=== PATIENT | male | born 1975 | race Two or more races ===

== ENCOUNTER 2023-02-18 12:30 | Outpatient (OUT) | payer OTHER, SELFPAY ==
[2023-02-18 12:59] LABS: Bilirubin Urine NEGATIVE (NEGATIVE); Blood Urine NEGATIVE (NEGATIVE); Clarity Urine CLEAR (CLEAR); Color Urine LT. YELLOW (YELLOW); Glucose Urine UA NEGATIVE (NEGATIVE); Ketones Urine NEGATIVE (NEGATIVE); Leukocyte Esterase Urine NEGATIVE (NEGATIVE); Nitrite Urine NEGATIVE (NEGATIVE); Protein Urine NEGATIVE (NEG/TRACE); Urobilinogen Urine 0.2 EU/dL (0.2-1.0); pH Urine 6.5 (5.0-9.0)
[2023-02-18 13:02] LABS: Basophils Percent Auto 0.4 % (0.2-2.0); Eosinophils Absolute Auto 0.3 10^3/uL (0.0-0.7); Eosinophils Percent Auto 2.3 % (0.9-7.0); Hematocrit 45.7 % (42.0-54.0); Hemoglobin 15.2 g/dL (14.0-18.0); Immature Granulocytes Abs Auto 0.09 10^3/uL (0.00-0.03); Immature Granulocytes Pct Auto 0.8 % (0.0-0.5); Lymphocytes Absolute Auto 2.5 10^3/uL (1.2-3.8); Lymphocytes Percent Auto 22.6 % (20.5-60.0); Mean Corpuscular HGB Conc 33.3 g/dL (29.9-35.2); Mean Corpuscular Hemoglobin 29.2 pg (25.9-34.0); Mean Corpuscular Volume 87.7 fL (80.0-94.0); Mean Platelet Volume 10.9 fL (9.5-13.5); Monocytes Percent Auto 8.6 % (1.7-12.0); Neutrophils Absolute Auto 7.3 10^3/uL (1.4-6.5); Neutrophils Percent Auto 65.3 % (43.0-75.0); Platelet Count 198 10^3/uL (150-450); Red Blood Count 5.21 10^6/uL (4.70-6.10); Red Cell Distribution Width 13.7 % (11.0-15.0); White Blood Count 11.1 10^3/uL (4.0-11.0)
[2023-02-18 13:07] LABS: Estimated Average Glucose 146 mg/dL; Glycohemoglobin A1C 6.7 % (4.5-6.2)
[2023-02-18 14:37] LABS: Alanine Aminotransferase 89 U/L (16-63); Albumin Globulin Ratio 0.7; Albumin Level 3.6 g/dL (3.4-5.0); Alkaline Phosphatase 118 U/L (46-116); Anion Gap 11.3; Aspartate Amino Transferase 52 U/L (15-37); BUN Creatinine Ratio 11.1; Bilirubin Total 0.8 mg/dL (0.2-1.0); Calcium 8.8 mg/dL (8.5-10.1); Carbon Dioxide 28.5 mmol/L (21.0-32.0); Chloride 98 mmol/L (98-107); Chol HDL Ratio 3.8; Cholesterol 146 mg/dL (<=200); Estimated GFR (African America >60 (>=60); Estimated GFR (Non-African Ame >60 (>=60); Globulin 5.4 g/dL; Glucose 105 mg/dL (74-106); HDL Cholesterol 38 mg/dL (40-60); Potassium 3.8 mmol/L (3.5-5.1); Sodium 134 mmol/L (136-145); Triglycerides 90 mg/dL (<=150)
== END 2023-02-18 12:31 ==
LOC: LAB 12:34
PROVIDERS: PCP Family Medicine; Visit Provider Family Medicine
DX: Z00.00 Encounter for general adult medical examination without abnormal findings (principal); R35.0 Frequency of micturition
CPT/HCPCS: 36415; 80053; 80061; 81003; 83036; 85025

== ENCOUNTER 2023-06-21 08:49 | Outpatient (OUT) | payer OTHER, SELFPAY ==
--- NOTE | 2023-06-21 | CT_ITS ---
[address] [address] Patient Name: PEDRO ROMERO MRN: [id number] date: 1975 Sex: M Assigned Patient Location: CT Current Patient Location: CT Accession/Order Number: [id number] Exam Date: 06/21/2023 08:55 Report Date: 06/21/2023 16:53 At the request of: MILKA LEE Procedure: CT abdomen wo/w con CT abdomen wo/w con, 06/21/2023 8:55 AM EDT INDICATION: Hematuria COMPARISON: There is no appropriate prior study for comparison. TECHNIQUE: Axial images of the abdomen were obtained after the administration of IV contrast. Multiplanar reformatted images were generated and reviewed as needed. Dose reduction techniques were achieved by using automated exposure control and/or adjustment of mA and/or kV according to patient size and/or use of iterative reconstruction technique. FINDINGS: Lungs: Minimal dependent atelectasis is noted. No pleural effusion is noted. Liver and gallbladder: The liver is unremarkable. No enlargement of intra or extrahepatic biliary ducts. Possible sludge within the gallbladder with no pericholecystic fluid or wall thickening. Genitourinary system: No hydronephrosis. No nephrolithiasis. No abnormality of the urinary bladder is noted. No suspicious renal lesion is noted. The ureters are opacified except in the proximal left ureter likely due to peristalsis. Other solid abdominal organs: adrenal glands, pancreas, and spleen are unremarkable. Aorta: The infrarenal abdominal aorta is nonaneurysmal. Free fluid: There is no free fluid in the abdomen pelvis. Lymph node: A gastrohepatic/peripancreatic lymphadenopathy is noted measuring 1.9 cm in short axis. Otherwise, no lymph node enlargement by size criteria is noted. Stomach and Bowel: No abnormality of the stomach is noted. No abnormality of small or large bowel is noted. Appendix is normal. There is an umbilical hernia containing fat and a tiny calcification. Bone: There is no suspicious osteolytic or osteoblastic lesion. Mild lower lumbar spine degenerative changes are noted. CT/CT abdomen wo/w con IMPRESSION: No definite radiological finding to explain patient's hematuria. Gastrohepatic/peripancreatic lymphadenopathy. Consider gastritis, duodenitis or hepatitis. Possible sludge within the gallbladder. No pericholecystic fluid or wall thickening is noted. Electronically authenticated by: JOSHUA ANDERSON Date: 06/21/2023 16:53
== END 2023-06-21 08:50 | disposition home or self-care (01) ==
PROVIDERS: PCP Family Medicine; Visit Provider Urology
DX: R31.29 Other microscopic hematuria (principal)
CPT/HCPCS: 74170; Q9967

== ENCOUNTER 2023-07-08 15:56 | Outpatient (OUT) | payer OTHER, SELFPAY ==
[2023-07-08 17:16] LABS: Prostate Specific Antigen Dx 0.77 ng/mL (<=4.00)
== END 2023-07-08 15:57 | disposition home or self-care (01) ==
LOC: LAB 15:58
PROVIDERS: PCP Family Medicine; Visit Provider Urology
DX: N40.1 Benign prostatic hyperplasia with lower urinary tract symptoms (principal)
CPT/HCPCS: 36415; 84153

== ENCOUNTER 2024-08-30 10:22 | Outpatient (OUT) | payer OTHER, SELFPAY ==
[2024-08-30 10:41] LABS: Basophils Percent Auto 0.5 % (0.2-2.0); Eosinophils Absolute Auto 0.2 10^3/uL (0.0-0.7); Eosinophils Percent Auto 1.9 % (0.9-7.0); Hematocrit 42.9 % (42.0-54.0); Hemoglobin 14.7 g/dL (14.0-18.0); Immature Granulocytes Abs Auto 0.09 10^3/uL (0.00-0.03); Immature Granulocytes Pct Auto 1.1 % (0.0-0.5); Lymphocytes Absolute Auto 1.7 10^3/uL (1.2-3.8); Lymphocytes Percent Auto 20.4 % (20.5-60.0); Mean Corpuscular HGB Conc 34.3 g/dL (29.9-35.2); Mean Corpuscular Hemoglobin 29.9 pg (25.9-34.0); Mean Corpuscular Volume 87.4 fL (80.0-94.0); Mean Platelet Volume 11.9 fL (9.5-13.5); Monocytes Absolute Auto 0.7 10^3/uL (0.3-0.8); Monocytes Percent Auto 8.4 % (1.7-12.0); Neutrophils Absolute Auto 5.7 10^3/uL (1.4-6.5); Neutrophils Percent Auto 67.7 % (43.0-75.0); Platelet Count 126 10^3/uL (150-450); Red Blood Count 4.91 10^6/uL (4.70-6.10); Red Cell Distribution Width 13.3 % (11.0-15.0); White Blood Count 8.5 10^3/uL (4.0-11.0)
--- OUTSIDE RECORDS SUMMARY | 2024-08-30 10:45 | XMS_ITS | CCD ---
Author Organization [facility] Care Team Providers Care Wire Setter Name Role Phone BENITA COLE Consulting Unavailable BENITA COLE Attending Unavailable BENITA COLE Admitting Unavailable BENITA COLE Primary Care Unavailable MISC, DOCTOR Consulting Unavailable MISC, DOCTOR Attending Unavailable MISC, DOCTOR Admitting Unavailable PATY DEL REAL Consulting Unavailable JEWELL CABALLERO Consulting Unavailable [facility] Consulting Unavailable Benita Cole Unavailable BENITA COLE Primary Care Physician Leo FRAZIER Attending Unavailable BENITA COLE Referring Unavailable Leo FRAZIER Admitting Unavailable Leo FRAZIER Attending Unavailable Leo FRAZIER Attending Unavailable Nisa Santillan Unavailable Allergies Allergy Classification Reported Allergen(s) Allergy Type Date of Onset Reaction(s) Facility (1 source) No Known Medication Allergies; Translations: [No Known Medication Allergies] Propensity to adverse reactions (disorder) [facility] [place] [facility] Repository (1 source) patient allergy list reviewed by nurse or physicia Propensity to adverse reactions Comment:Done [facility] Other (1 source) Allergies Reconciled Propensity to adverse reactions Unknown [facility] Other Medications Current Medications Medication Drug Class(es) Dates Sig (Normalized) Sig (Original) 24 hr alfuzosin hydrochloride 10 mg extended release oral tablet (1 source) alpha-Adrenergic Pawel Start: 05-26-2023 End: 05-20-2024 take 1 tablet by mouth once daily alfuzosin 10 mg ER Tab 10 mg = 1 tab(s), Oral, Daily, X 30 day(s), # 30 tab(s), Refills(s) 11, Pharmacy: [facility], 169, cm, 05/26/23 13:52:00 EDT, Height/Length Dosing, 131, kg, 05/26/23 13:52:00 EDT, Weight Dosing Start Date: 05/26/23 Stop Date: 05/20/24 Status: Ordered amoxicillin 875 mg / clavulanate 125 mg oral tablet (1 source) Penicillin-class Antibacterial Start: 09-20-2023 take 1 tablet by mouth every twelve hours Amoxicillin-Pot Clavulanate 875-125 MG 1 tablet Orally every 12 hrs for 10 day(s) Sep, Active metFORMIN hydrochloride 1000 mg oral tablet (3 sources) Biguanide Start: 03-05-2023 metformin 1000 mg Tab Refills(s) 0 Start Date: 05/26/23 Status: Ordered Naproxen (1 source) Nonsteroidal Anti-inflammatory Drug Start: 05-26-2023 naproxen Oral, Refills(s) 0 Start Date: 05/26/23 Status: Ordered predniSONE 20 mg oral tablet (1 source) Start: 09-20-2023 take 1 tablet by mouth every twelve hours predniSONE 20 MG 1 tablet Orally bid for 5 day(s) Sep, Active Completed/Discontinued Medications Medication Drug Class(es) Dates Sig (Normalized) Sig (Original) ciprofloxacin 500 mg oral tablet (1 source) Quinolone Antimicrobial Start: 05-26-2023 Cipro 500 mg Tab 500 mg = 1 tab(s), Oral, As Directed, Patient to take 1 tab the day before procedure and the 2nd tab the day of procedure once completed, # 2 tab(s), Refills(s) 0, Pharmacy: [facility], 169, cm, 05/26/23 13:52:00 EDT, Height/Length Dos... Start Date: 05/26/23 Status: Ordered fluticasone (1 source) Corticosteroid Start: 06-17-2024 End: 06-17-2024 take 1 spray(s) nasal route once daily Fluticasone Furoate Discontinued 2 SPRAY INTRANASAL Daily 6.6 June 17, 2024 12:00am June 17, 2024 3:33pm into each nostril Problems Active Problems Problem Classification Problem Date Documented Date Episodic/Chronic Diabetes mellitus with complications (3 sources) Type 2 diabetes mellitus well controlled; Translations: [Type 2 diabetes mellitus with hyperglycemia] Chronic Diabetes mellitus without complication (1 source) Type 1 diabetes mellitus 05-19-2023 Chronic Genitourinary symptoms and ill-defined conditions (1 source) Urge incontinence of urine 05-26-2023 Chronic Hyperplasia of prostate (1 source) Benign prostatic hypertrophy with outflow obstruction 05-26-2023 Chronic Inflammation; infection of eye (except that caused by tuberculosis or sexually transmitteddisease) (1 source) Conjunctivitis; Translations: [Unspecified conjunctivitis] Episodic Nonspecific chest pain (1 source) Chest pain; Translations: [Other chest pain] Episodic Other connective tissue disease (1 source) Pain in limb; Translations: [Pain in right thigh] Episodic Other male genital disorders (6 sources) Male erectile dysfunction, unspecified; Translations: [Impotence] Onset: 09-26-2015 Chronic Other nutritional; endocrine; and metabolic disorders (1 source) Obese class II; Translations: [Body mass index (BMI) 38.0-38.9, adult] Chronic Other screening for suspected conditions (not mental disorders or infectious disease) (3 sources) Elevated liver enzymes level; Translations: [Other specified abnormal findings of blood chemistry] Episodic Other upper respiratory disease (3 sources) Allergic rhinitis; Translations: [Allergic rhinitis, unspecified] Chronic Other upper respiratory infections (1 source) Chronic sinusitis; Translations: [Chronic sinusitis, unspecified] Chronic Otitis media and related conditions (1 source) Unspecified nonsuppurative otitis media, left ear Episodic Unclassified (1 source) Asymptomatic microscopic hematuria 05-26-2023 Unclassified (1 source) Patient encounter status 05-26-2023 Past or Other Problems Problem Classification Problem Date Documented Da te Episodic/Chronic Acute bronchitis (1 source) Acute bronchitis; Translations: [Acute bronchitis, unspecified] Onset: 08-24-2015 Episodic Genitourinary symptoms and ill-defined conditions (3 sources) Frequency of micturition; Translations: [Finding of frequency of urination] Onset: 09-26-2015 Episodic Other connective tissue disease (1 source) Pain in left arm; Translations: [PAIN IN LEFT ARM] Onset: 06-24-2020 Episodic Residual codes; unclassified (4 sources) Edema, unspecified; Translations: [EDEMA UNSPECIFIED] Onset: 06-21-2020 Episodic Residual codes; unclassified (1 source) Family history of diabetes mellitus; Translations: [Family history of diabetes mellitus] Onset: 05-24-2014 Episodic Residual codes; unclassified (1 source) Family history of stroke; Translations: [Family history of stroke] Onset: 05-24-2014 Episodic Sprains and strains (1 source) Strain of unspecified muscle, fascia and tendon at shoulder and upper arm level, left arm, initial encounter; Translations: [STRN UNS MSC F TND SHLDR UA LA INIT] Onset: 06-24-2020 Episodic Superficial injury; contusion (1 source) Contusion of lower leg; Translations: [Contusion of right lower leg, initial encounter] Onset: 07-14-2018 Episodic Results Test Name Value Interpretation Reference Range Facility Provider Letteron 07-16-2023 Provider Letter July 16, 2023 AURELIANO ROMERO [address] [place], [place] [address] [address] : 1975 Dear Mr. Romero, We have been trying to reach you with no success. It is important that you return our call regarding your CT and PSA results upon receiving this letter. Also, at the time of your call, please provide us with your current information. Please call our office at [phone] Thank you for your prompt attention to this matter. Sincerely, [facility] [address] [place] [address] Lab Reportson 07-14-2023 Lab Reports [id number]#1 .00[facility]FF [facility] RAD - CT Reporton 06-27-2023 RAD - CT Report [id number]#1 .00[facility]FF [facility] Operative Reporton Operative Report [id number]#1 .00[facility]FF [facility] Pre-Certification Formon Pre-Certification Form [id number] .00[facility]FF [facility] Insurance Correspondenceon 1 Insurance Correspondence [id number]# 1.00TIFF Normal [facility] [place] [facility] Pre-Certification Formon Pre-Certification Form [id number]#1 .00TIFF Normal [facility] [place] [facility] Urine Cytology ([facility])on Urine Cytology Diagnosis Info Invalid Interpretation Code [facility] [place] [facility] Comment on above: Result Comment: A:Ur ine,Urine:Voided Interpretation - MicroScopic Description - Adequacy - Gross Description Site ID:A color Yellow fixative Alcohol Specimen designated Urine received in alcohol preservative and labeled with the patient?s name, consists of 80ml clear yellow fluid. Electronically signed by : on: 06/02/2023 14:58:41 Performed By: #### 1 [id number] ####[facility] [place] [facility] [address] [place] [address] Consent for Procedure/Surger yon 05-27-2023 Consent for Procedure/Surgery [id number]# 1.00CD:127 Normal [facility] [place] [facility] Formson 05-27-2023 Forms [id number]#1. 00CD:127 Normal [facility] [place] [facility] Physician Referralon 023 Physician Referral [id number]. 00CD:127 Normal [facility] [place] [facility] Ambulatory Visit Summaryon 0 05-26-2023 Ambulatory Visit Summary AURELIANO ROMERO :1975 Visit Date:05/26/2023 Ambulatory Visit Instructions Your Diagnosis BPH with obstruction/lower urinary tract symptoms Urge incontinence Asymptomatic microscopic hematuria Screening PSA (prostate specific antigen) Tests Performed Urnls Dip Stick Auto w/o Microscopy POC [address] CT Urogram -- Results Pending -- Please visit your patient portal for your results or contact your primary care physician. Your Care Team Attending Physician - JESUS ZENG, Leo Kelly Primary Care Physician - KELSEY ZENG, BENITA Referring Physician - BENITA COLE MD This Is Your Medications List alfuzosin (alfuzosin 10 mg ER Tab) ciprofloxacin (Cipro 500 mg Tab) Contact prescribing physician if questions or concerns metformin (metformin 1000 mg Tab) naproxen Procedures Performed History of knee surgery. Discharge Vitals Heart Rate (Peripheral) 79 Respiratory Rate 16 Blood Pressure 135/84 Height 169 cm Height 67 in Weight 131 kg Weight 288.2 lb BMI 45.87 What to do next You Need to Schedule the Following Appointments Follow Up with JESUS ZENG, BEATRICE Combs When: Where: [facility] [address], [facility] [place] [address] [phone] Medications What How Much When Instructions New alfuzosin (alfuzosin 10 mg ER Tab) 1 Tablets By Mouth Every day Duration: 30 Days Refills: 11 Pickup at [facility] New ciprofloxacin (Cipro 500 mg Tab) 1 Tablets By Mouth As Directed Patient to take 1 tab the day before procedure and the 2nd tab the day of procedure once completed Pickup at [facility] Unchanged metformin (metformin 1000 mg Tab) Contact prescribing physician if questions or concerns Unchanged naproxen By Mouth Contact prescribing physician if questions or concerns Pharmacy Information [facility]: [address] [place], [place] [id number] [phone] Test Results Urnls Dip Stick Auto w/o Microscopy POC 98348 (05/26/2023) Bilirubin Urine Dipstick - Negative Blood Urine Dipstick - 1+ Small Glucose Urine Dipstick - Negative Ketones Urine Dipstick - Negative Leukocytes Urine Dipstick - Negative Nitrite Urine Dipstick - Negative Protein Urine Dipstick - 1+ (30 mg/dl) Specific [place] Urine Dipstick - 1.025 Urine Appearance Urine Dipstick - Clear Urine Color Urine Dipstick - Yellow Urobilinogen Urine Dipstick - Normal 0.2-1 EU/dl pH Urine Dipstick - 6.5 Allergies No Known Medication Allergies Problems Ongoing - Any problem that you are currently receiving treatment for. Asymptomatic microscopic hematuria BPH with obstruction/lower urinary tract symptoms Erectile dysfunction Screening PSA (prostate specific antigen) Type 2 diabetes mellitus with hyperglycemia, without long-term current use of insulin Urge incontinence Education Materials Cystoscopy Cystoscopy is a procedure that is used to help diagnose and sometimes treat conditions that affect the lower urinary tract. The lower urinary tract includes the bladder and the urethra. The urethra is the tube that drains urine from the bladder. Cystoscopy is done using a thin, tube-shaped instrument with a light and camera at the end (cystoscope). The cystoscope may be hard or flexible, depending on the goal of the procedure. The cystoscope is inserted through the urethra, into the bladder. Cystoscopy may be recommended if you have: ? Urinary tract infections that keep coming back. ? Blood in the urine (hematuria). ? An inability to control when you urinate (urinary incontinence) or an overactive bladder. ? Unusual cells found in a urine sample. ? A blockage in the urethra, such as a urinary stone. ? Painful urination. ? An abnormality in the bladder found during an intravenous pyelogram (IVP) or CT scan. Cystoscopy may also be done to remove a sample of tissue to be examined under a microscope (biopsy). Tell a health care provider about: ? Any allergies you have. ? All medicines you are taking, including vitamins, herbs, eye drops, creams, and zjjo-zqs-evmjbxj medicines. ? Any problems you or family members have had with anesthetic medicines. ? Any blood disorders you have. ? Any surgeries you have had. ? Any medical conditions you have. ? Whether you are or may be . What are the risks? Generally, this is a safe procedure. However, problems may occur, including: ? Infection. ? Bleeding. ? Allergic reactions to medicines. ? Damage to other structures or organs. What happens before the procedure? Medicines Ask your health care provider about: ? Changing or stopping your regular medicines. This is especially important if you are taking diabetes medicines or blood thinners. ? Taking medicines such as aspirin and ibuprofen. These medicines can thin your blood. Do not take these medicines unless your health care provi (more content not included)... Normal [facility] [place] [facility] Urine Cytology ([facility])on 0 05-26-2023 Method of Extraction Voided Normal [facility] [place] [facility] Comment on above: Performed By: #### 1 [id number] ####[facility] [place] [facility] [address] [place] [address] Number of Jars 1 Invalid Interpretation Code [facility] [place] [facility] Comment on above: Performed By: #### 1 [id number] ####[facility] [place] [facility] [address] [place] [address] Specimen Urine Normal [facility] [place] [facility] Comment on above: Performed By: #### 1 [id number] ####[facility] [place] [facility] [address] [place] [address] Type of Service Technical Only Normal [facility] Comment on above: Performed By: #### 1 [id number] ####[facility] [place] [facility] [address] [place] [address] Urology Office/Clinic Noteon 05-26-2023 Urology Office/Clinic Note Chief Complaint urinary leakage HPI Staff 48 yo male new pt referred by Dr. Benita Cole for urinary leakage. Last seen in our office 10/[address] Stone. Pt states that urinary leakage has been ongoing for about 6-7 months now. It happens mostly in the morning. Pt admits that some of his leakage may be due to him waiting too long. PVR today is 15ml. Dysuria: no Incomplete bladder emptying: pt feels relieved Hematuria: no Frequency: no Urgency: no Nocturia: no Stream: varies feels he has to strain sometimes Leaking: yes but admits sometimes to waiting too long Post void dripping: Wearing pads/ Depends: no Urge incontinence: no Stress incontinence: no Incontinence without Sensory Awareness: no Abdominal pain: no Flank pain: no Sexual complaints: no History of Present Illness Tests reviewed: reviewed UA, referral records I have reviewed the previous health record information and history for this patient from Dr. Benita Cole . I have reviewed and verified the staff HPI to be accurate for this encounter. There have been no associated fever, chills, flank pain, or blood in the urine. Denies any urinary infections since last encounter. Review of Systems PHQ Score Initial Depression Screen Score: 0 ROS - Provider Constitutional: denies weight loss, denies hot flashes. Eyes: denies eye problems. Gastrointestinal: denies nausea, denies vomiting. Cardiovascular: denies chest pain or angina. Integumentary: no dryness Musculoskeletal: denies musculoskeletal symptoms. ENMT: denies otolaryngeal symptoms. Respiratory: no shortness of breath. Heme/Lymph: denies easy bleeding tendency, denies easy bruising tendency. Psychiatric: no confusion, no anxiety. Genitourinary: See HPI. Physical Exam Vitals & Measurements HR: 79(Peripheral) RR: 16 BP: 135/84 HT: 67 in HT: 169 cm WT: 131 kg WT: 288.2 lb BMI: 45.87 General Appearance: alert, no distress, well nourished, well developed male. Head: normocephalic . Eyes: normal orbit and globe. ENMT: normal examination of external ears. Chest: Lungs CTA, respirations non labored. Cardiovascular: regular rate and rhythm. Abdomen: soft, non distended, no tenderness, no mass or organomegaly, no hernia. Genitourinary: normal scrotum, normal testes, normal urethra, normal epididymis, normal vas deferens/spermatic cord. Flank Pain: none. Bladder: nonpalpable. Penis: normal shaft, normal glans. Lymph Nodes: unremarkable palpation of the cervical area. Skin: warm, dry, no bruising. Psychiatric: cooperative, affect appropriate for age, normal judgement, euthymic mood. Assessment/Plan Aureliano is a 48 yo male new pt referred by Dr. Benita Cole due to urinary frequency. [place] [address] Stone. 1. BPH with obstruction/lower urinary tract symptoms (N40.1: Benign prostatic hyperplasia with lower urinary tract symptoms) Stream ok, sometimes weak. Pushes to have better stream. Feels he empties completely. -Start Alfuzosin 10 mg ER qd. SEs discussed. Rx sent to [facility]. 2. Urge incontinence (N39.41: Urge incontinence) See #1. PVR 15 ml. Mild. Urinary leakage started 6-7 mos ago, mostly occurs in the morning or if he has been holding his bladder. 3. Asymptomatic microscopic hematuria (R31.21: Asymptomatic microscopic hematuria) UA shows small blood, neg for infection. No gross hematuria. Last UTI 17 yo. Discussed options. The patient is aware that a distinct etiology of the hematuria may not be clear upon conclusion of the workup. Will initiate hematuria workup to include upper urinary tract imaging, as well as evaluation of the urinary cells with urine cytology and possible a FISH test. A cystoscopy will be scheduled to rule out lower urinary tract pathology. The rationale for this workup has been discussed, and all questions have been answered. Informed consent will be obtained. Prophylactic antibiotics will be given. -Will send urine for cytol today. -Schedule CTU. -Will schedule cysto. The risks and benefits for cystoscopy have been discussed. The risks include bleeding, infection, and irritation of the bladder and urinary channel, among others. The patient, after being informed of procedural details and after questions have been answered, wishes to proceed. Full informed consent has been obtained. Will order Local anesthesia. Prophylactic abx sent to [facility]. 4. Screening PSA (prostate specific antigen) (Z12.5: Encounter for screening for malignant neoplasm of prostate) -PSA to be drawn IO today. Follow-up With When Contact Information Leo FRAZIER MD, [facility] [address], [place] [address]- [phone] Additional Instructions: schedule cysto, CTU Patient Education Cystoscopy I, Paris Leroy, personally scribed for Dr. Frazier on 05/26/2023 14:59:43. . Documentation recorded by the scribe, Paris Leroy, accurately reflects the services( (more content not included)... Normal [facility] [place] [facility] Comment on above: Result Comment: Elec tronically Signed By: Leo FRAZIER MD\.br\Date and Time Signed: 05/26/23 15:01 EDT\.br\Electronically Co-Signed By: Paris Leroy\.br\Date and Time Co-Signed: 05/26/23 15:00 EDT LIPID PROFILEon 07-07-2020 CHOL-HDL RATIO NORM SEE BELOW Normal [facility] Comment on above: Result Comment: 3.3 - 4.4 LOW RISK 4.4 - 7.1 AVERAGE RISK 7.1 - 11.0 MODERATE RISK >11.0 HIGH RISK Performed By: #### C MP, LIPID #### [facility] [address] [place], [place] [address] Parth Lisette Cholesterol [Mass/Vol] 144 mg/dL Normal <=200 [facility] [place] Comment on above: Performed By: #### C MP, LIPID #### [facility] [address] [place], [place] [address] Parth Lisette Cholesterol in HDL [Mass/Vol] 43 mg/dL Normal [facility] [place] Comment on above: Performed By: #### C MP, LIPID #### [facility] [address] [place], [place] [address] Parth Lisette Cholesterol in HDL [Mass/Vol] > or = 60 mg/dl - LOW CARDIOVASCULAR RISK <40 mg/dl - HIGH CARDIOVASCULAR RISK Normal [facility] [place] Comment on above: Performed By: #### C MP, LIPID #### [facility] [address] [place], [place] [address] Parth Lisette Cholesterol in LDL [Mass/Vol] 90.8 mg/dL Normal [facility] Comment on above: Performed By: #### C MP, LIPID #### [facility] [address] [place] [address] Parth Lisette Cholesterol in LDL [Mass/Vol] SEE BELOW Normal [facility] [place] Comment on above: Result Comment: <100 mg/dl OPTIMAL 100 - 129 mg/dl NEAR OR ABOVE OPTIMAL 130 - 159 mg/dl BORDERLINE HIGH 160 - 189 mg/dl HIGH >190 mg/dl VERY HIGH Performed By: #### C MP, LIPID #### [facility] [address] [place] [address] Parth Lisette Cholesterol.total/Cho lesterol in HDL [Mass ratio] 3.3 {ratio} Normal [facility] [place] Comment on above: Performed By: #### C MP, LIPID #### [facility] [address] [place] [address] Parth Lisette Triglyceride [Mass/Vol] 51 mg/dL Normal <=150 [facility] Comment on above: Performed By: #### C MP, LIPID #### [facility] [address] [place] [address] Parth Lisette VLDL CALC 10.2 mg/dL Normal [facility] [place] Comment on above: Performed By: #### C MP, LIPID #### [facility] [address] [place], [place] [address] Parth Lisette PROF 14(COMP METB)on 020 Albumin [Mass/Vol] 4.0 g/dL Normal 3.5-5.0 [facility] Comment on above: Performed By: #### C MP, LIPID #### [facility] [address] [place] [id number] Parth Lisette Albumin/Globulin [Mass ratio] 1.0 {ratio} Normal [facility] [place] Comment on above: Performed By: #### C MP, LIPID #### [facility] [address] [place] [id number] Parth Lisette ALP [Catalytic activity/Vol] 81 U/L Normal 38-126 [facility] Comment on above: Performed By: #### C MP, LIPID #### [facility] [address] [place] [address] Parth Lisette ALT [Catalytic activity/Vol] 40 U/L Normal 21-72 [facility] [place] Comment on above: Performed By: #### C MP, LIPID #### [facility] [address] [place] [address] Parth Lisette Anion gap [Moles/Vol] 11.3 mmol/L Normal [facility] Comment on above: Performed By: #### C MP, LIPID #### [facility] [address] [place] [address] Parth Lisette AST [Catalytic activity/Vol] 18 U/L Normal 17-59 [facility] [place] Comment on above: Performed By: #### C MP, LIPID #### [facility] [address] [place] [address] Parth Lisette Bilirubin Ql (U) 0.7 mg/dL Normal 0.2-1.3 [facility] Comment on above: Performed By: #### C MP, LIPID #### [facility] [address] [place] [address] Parth Lisette Calcium [Mass/Vol] 9.0 mg/dL Normal 8.4-10.2 [facility] Comment on above: Performed By: #### C MP, LIPID #### [facility] [address] [place], [place] [id number] Parth Lisette Chloride [Moles/Vol] 102 mmol/L Normal 98-107 [facility] Comment on above: Performed By: #### C MP, LIPID #### [facility] [address] [place], [place] [id number] Parth Lisette CO2 [Moles/Vol] 27.7 mmol/L Normal 22.0-30.0 [facility] Comment on above: Performed By: #### C MP, LIPID #### [facility] [address] [place] [address] Parth Lisette Creatinine [Mass/Vol] 0.83 mg/dL Normal 0.66-1.25 [facility] Comment on above: Performed By: #### C MP, LIPID #### [facility] [address] [place] [address] Parth Lisette EGFR-AF SALVADOREAN >60 Normal >=60 [facility] Comment on above: Performed By: #### C MP, LIPID #### [facility] [address] [place] [address] Parth Lisette EGFR-NON AF SALVADOREAN >60 Normal >=60 [facility] Comment on above: Performed By: #### C MP, LIPID #### [facility] [address] [place] [address] Parth Lisette Globulin (S) [Mass/Vol] 4.2 g/dL Normal [facility] Comment on above: Performed By: #### C MP, LIPID #### [facility] [address] [place] [address] Parth Lisette Glucose [Mass/Vol] 105 mg/dL Normal 74-106 [facility] Comment on above: Performed By: #### C MP, LIPID #### [facility] [address] [place] [address] Parth Lisette Potassium [Moles/Vol] 4.0 mmol/L Normal 3.4-5.0 [facility] Comment on above: Performed By: #### C MP, LIPID #### [facility] [address] [place] [address] Parth Lisette Protein [Mass/Vol] 8.2 g/dL Normal 6.1-8.2 [facility] Comment on above: Performed By: #### C MP, LIPID #### [facility] [address] [place] [address] Parth Lisette Sodium [Moles/Vol] 137 mmol/L Normal 137-145 [facility] Comment on above: Performed By: #### C MP, LIPID #### [facility] [address] [id number] Parth Knox Urea nitrogen [Mass/Vol] 18.0 mg/dL Normal 9.0-20.0 [facility] Comment on above: Performed By: #### C MP, LIPID #### [facility] [address] [id number] Parth Knox Urea nitrogen/Creatinine [Mass ratio] 21.7 mg/mg Normal [facility] Comment on above: Performed By: #### C MP, LIPID #### [facility] [address] [id number] Parth Knox XR HUMERUS LT MIN 2Von 06-22 XR HUMERUS LT MIN 2V EXAM: XR ELBOW LT 2 V, XR FOREARM LT 2 VIEWS, XR HUMERUS LT MIN 2V HISTORY: The patient is a 45-year-old male with diffuse left arm pain and limited range of motion of the left elbow. COMPARISON: None. FINDINGS: The lateral view of the left elbow demonstrates calcifications within the subcutaneous tissues dorsal to the olecranon. This may represent calcification within a small olecranon bursa. Otherwise, the 2 views of the left elbow are radiographically negative with no evidence of fracture, dislocation, joint space narrowing, erosions, osteophytes, fat pad elevation, or other osseous or articular abnormalities. The 2 views of the left humerus are radiographically negative. The 2 views of the left forearm are radiographically negative. IMPRESSION: Calcifications within the soft tissues dorsal to the olecranon. Electronically authenticated by: THOMAS STUART Date: 2020-06-21 23:25 Normal [facility] US VENOUS DOPPLER L Gonzalo US VENOUS DOPPLER L ARM EXAM: US VENOUS DOPPLER L ARM HISTORY: Deep venous thrombosis. Strained muscle 4 days ago with bruising of the medial aspect of the arm with pain. COMPARISON: None. TECHNIQUE: Roque scale, color, and spectral Doppler ultrasound. FINDINGS: Appropriate venous waveforms, compressibility and augmentation with compression are noted within the left upper extremity venous system as well as the left internal jugular and left subclavian veins. Within the soft tissues of the left arm at the level of the elbow there is a focal fluid collection measuring 5.4 x 1.3 x 1.4 cm at the site of the patient's area of pain. IMPRESSION: 1. No evidence of DVT. 2. At the patient's area of pain within the soft tissues at the level of the elbow, note is made of a focal fluid collection measuring 5.4 x 1.3 x 1.4 cm, likely secondary to an intramuscular hematoma. Results were placed in the stat call folder for communication to the clinical service at the time of this interpretation. Electronically authenticated by: JEWELL CABALLERO Date: 2020-06-21 17:30 Normal [facility] XR WRIST LT 2Von 06-21-2020 XR WRIST LT 2V EXAM: XR WRIST LT 2V INDICATION: Edema. COMPARISON: None. TECHNIQUE: AP, lateral, oblique views of the left wrist. FINDINGS: The carpometacarpal alignment is preserved. There is no acute fracture. The visualized portion of the distal radius and ulna appears intact. There are linear sclerotic changes traversing through the intra-articular surface of the distal radius, likely related to projection. There is mild elevation of the pronator fat pad. Arterial vascular calcification. Mild subcutaneous edema. IMPRESSION: Mild elevation of the pronator fat pad without any acute osseous abnormality. Electronically authenticated by: PATY DEL REAL Date: 2020-06-21 18:46 Normal [facility] Vital Signs Date Time Vital Sign Value Performing Clinician Facility 06-17-2024 15:09-0400 Body height 172.72 cm [facility] 06-17-2024 15:090400 Body mass index (BMI) [Ratio] 43 kg/m2 [facility] 06-17-2024 15:090400 Body weight 128.36 kg [facility] 06-17-2024 15:09-0400 Diastolic blood pressure 95 mm[Hg] [facility] 06-17-2024 15:090400 Heart rate 80 /min [facility] 06-17-2024 15:09-0400 Systolic blood pressure 172 mm[Hg] [facility] 09-20-2023 13:20-0500 Body height 172.72 cm Nisa Santillan Other [facility] 09-20-2023 13:20-0500 Body mass index (BMI) [Ratio] 42.57 kg/m2 Nisa Santillan Other [facility] 09-20-2023 13:20-0500 Body temperature 99 [degF] Nisa Tanmond Other [facility] Other 09-20-2023 13:20-0500 Body weight 127.01 kg Nisa Santillan Other [facility] Other 09-20-2023 13:20-0500 Diastolic blood pressure 100 mm[Hg] Nisa Santillan Other [facility] Other 09-20-2023 13:20-0500 SaO2% (BldA) [Mass fraction] 95 % Nisa Santillan Other [facility] Other 09-20-2023 13:20-0500 Systolic blood pressure 160 mm[Hg] Nisa Santillan Other [facility] Other 2023 11:30-0400 Body height 172.72 cm Benita Cole Other [facility] Other 2023 11:30-0400 Body mass index (BMI) [Ratio] 45.61 kg/m2 Benita Cole Other [facility] Other 2023 11:30-0400 Body weight 136.08 kg Benita Cole Other [facility] Other 2023 11:30-0400 Diastolic blood pressure 90 mm[Hg] Benita Cole Other [facility] Other 2023 11:30-0400 SaO2% (BldA) [Mass fraction] 97 % Benita Cole Other [facility] Other 2023 11:30-0400 Systolic blood pressure 148 mm[Hg] Benita Cole Other [facility] Other Encounters Encounter Date Encounter Type Care Provider Facility Start: 06-17-2024 End: 06-17-2024 ambulatory [facility] Work Phone: Start: 06-17-2024 End: 06-17-2024 Patient encounter procedure [facility] Work Phone: Start: 09-20-2023 End: 09-20-2023 ambulatory Nisa Santillan Other [facility] Other Start: 09-20-2023 Office outpatient vi sit 15 minutes Nisa Santillan [facility] Start: 06-24-2023 End: 06-25-2023 ambulatory Leo FRAZIER Facility:[id number] Start: 05-26-2023 End: 05-26-2023 Lab Drop off Leo FRAZIER [facility] Start: 05-26-2023 End: 05-27-2023 ambulatory Leo FRAZIER Facility:[facility] Start: 03-06-2023 ambulatory Leo FRAZIER Facility :[facility] Start: 02-28-2023 End: 02-28-2023 ambulatory Benita Cole Other [facility] Other Start: 02-28-2023 Telephone encounter Benita Cole [facility] Start: 2023 End: 2023 ambulatory Benita Cole Other [facility] Other Start: 2023 Encounter for genera l adult medical examination without abnormal findings Benita Kelsey [facility] Start: 2023 Periodic preventive med est patient 40-64yrs Benita Cole [facility] Start: 07-11-2020 Encounter for genera l adult medical examination without abnormal findings BENITA KELSEY [facility] Start: 07-07-2020 Adult health examination Nisa Santillan Other [facility] Other Start: 07-07-2020 End: 07-08-2020 Patient encounter procedure BENITA Benoit KELSEY Facility:[facility] Start: 06-21-2020 End: 06-22-2020 Patient encounter procedure BENITA E KELSEY Facility:[facility] Encounter for genera l adult medical examination without abnormal findings BENITA COLE [facility] Procedures Date Procedure Procedure Detail Performing Clinician History of operative procedure on knee Leo FRAZIER Payers Date Payer Category Payer Unknown [id number] 1975 Unknown [id number] [id number] [id number] 1975 Unknown [id number] 2.16.84 [id number] 1975 Unknown [id number] 2.16.8 [id number] 1975 Unknown [id number] 2.16.8 [id number] 1975 Unknown [id number] 2.16.8 [id number] 1975 Unknown [id number] 2.16.8 [id number] 1959 Unknown [id number] Unknown [id number] 2.16.8 [id number] Social History Date Type Detail Facility Sex Assigned At [facility] Start: 05-26-2023 End: 06-16-2024 Tobacco smoking status Never smoked tobacco (finding) [facility] Start: 1975 Sex Assigned At Male [facility] Evaluation note 09-20-2023 Note Date & Type Note Facility 09-20-2023 Evaluation note Encounter Date Diagnosis Assessment Notes Sep, Left otitis media with effusion (ICD-10 - H65.92) Drink plenty fluids, get plenty of rest. Take the amoxicillin with clavulanate as prescribed until gone. Take the prednisone as prescribed until gone. Take Tylenol or Motrin for aches pains or fevers. Follow-up with your family physician if no improvement in 2 to 3 days. [facility] Other Clinical Note 05-26-2023 Note Date & Type Note Facility 05-26-2023 Note Urology Cystoscopy Cystoscopy is a procedure that is used to help diagnose and sometimes treat conditions that affect the lower urinary tract. The lower urinary tract includes the bladder and the urethra. The urethra is the tube that drains urine from the bladder. Cystoscopy is done using a thin, tube-shaped instrument with a light and camera at the end (cystoscope). The cystoscope may be hard or flexible, depending on the goal of the procedure. The cystoscope is inserted through the urethra, into the bladder. Cystoscopy may be recommended if you have: ? Urinary tract infections that keep coming back. ? Blood in the urine (hematuria). ? An inability to control when you urinate (urinary incontinence) or an overactive bladder. ? Unusual cells found in a urine sample. ? A blockage in the urethra, such as a urinary stone. ? Painful urination. ? An abnormality in the bladder found during an intravenous pyelogram (IVP) or CT scan. Cystoscopy may also be done to remove a sample of tissue to be examined under a microscope (biopsy). Tell a health care provider about: ? Any allergies you have. ? All medicines you are taking, including vitamins, herbs, eye drops, creams, and kmkw-tec-rmeklff medicines. ? Any problems you or family members have had with anesthetic medicines. ? Any blood disorders you have. ? Any surgeries you have had. ? Any medical conditions you have. ? Whether you are or may be . What are the risks? Generally, this is a safe procedure. However, problems may occur, including: ? Infection. ? Bleeding. ? Allergic reactions to medicines. ? Damage to other structures or organs. What happens before the procedure? Medicines Ask your health care provider about: ? Changing or stopping your regular medicines. This is especially important if you are taking diabetes medicines or blood thinners. ? Taking medicines such as aspirin and ibuprofen. These medicines can thin your blood. Do not take these medicines unless your health care provider tells you to take them. ? Taking knht-dbg-rtasoft medicines, vitamins, herbs, and supplements. Tests You may have an exam or testing, such as: ? X-rays of the bladder, urethra, or kidneys. ? CT scan of the abdomen or pelvis. ? Urine tests to check for signs of infection. General instructions ? Follow instructions from your health care provider about eating or drinking restrictions. ? Ask your health care provider what steps will be taken to help prevent infection. These steps may include: ? Washing skin with a germ-killing soap. ? Taking antibiotic medicine. ? Plan to have a responsible adult take you home from the hospital or clinic. What happens during the procedure? ? You will be given one or more of the following: ? A medicine to help you relax (sedative). ? A medicine to numb the area (local anesthetic). ? The area around the opening of your urethra will be cleaned. ? The cystoscope will be passed through your urethra into your bladder. ? Germ-free (sterile) fluid will flow through the cystoscope to fill your bladder. The fluid will stretch your bladder so that your health care provider can clearly examine your bladder elder. ? Your doctor will look at the urethra and bladder. Your doctor may take a biopsy or remove stones. ? The cystoscope will be removed, and your bladder will be emptied. The procedure may vary among health care providers and hospitals. What can I expect after the procedure? After the procedure, it is common to have: ? Some soreness or pain in your abdomen and urethra. ? Urinary symptoms. These include: ? Mild pain or burning when you urinate. Pain should stop within a few minutes after you urinate. This may last for up to 1 week. ? A small amount of blood in your urine for several days. ? Feeling like you need to urinate but producing only a small amount of urine. Follow these instructions at home: Medicines ? Take ehfp-hjp-vludwvg and prescription medicines only as told by your health care provider. ? If you were prescribed an antibiotic medicine, take it as told by your health care provider. Do not stop taking the antibiotic even if you start to feel better. General instructions ? Return to your normal activities as told by your health care provider. Ask your health care provider what activities are safe for you. ? If you were given a sedative during the procedure, it can affect you for several hours. Do not drive or operate machinery until your health care provider says that it is safe. ? Watch for any blood in your urine. If the amount of blood in your urine increases, call your health care provider. ? Follow instructions from your health care provider about eating or drinking restrictions. ? If a tissue sample was removed for testing (biopsy) during your procedure, it is up to you to get your test results. Ask your health care provider, or the department th (more content not included)... [facility] Evaluation + Plan note 05-26-2023 Note Date & Type Note Facility 05-26-2023 Evaluation + Plan note Diagnostic Tests PendingUrine Cytology ([facility]) 05/26/23 [facility] Evaluation note 02-28-2023 Note Date & Type Note Facility 02-28-2023 Evaluation note Encounter Date Diagnosis Assessment Notes Jan, Urinary frequency (ICD-10 - R35.0) Jan, Controlled type 2 diabetes mellitus with hyperglycemia, without long-term current use of insulin (ICD-10 - E11.65) [facility] Other Evaluation note 2023 Note Date & Type Note Facility 2023 Evaluation note Encounter Date Diagnosis Assessment Notes Jan, Well adult exam (ICD-10 - Z00.00) We have discussed the necessity of following up with PCP regularly as well as specialists, as needed. Discussed F/U with dentistry and optometry at least yearly. Discussed all preventative measures/ cancer screenings as applicable to this patient. Emphasized the importance of a reduced fat, low carb diet to promote heart health and controlled blood sugars. Reviewed social history and ensured patient is safe within the home today. Pt denies any abuse of alcohol, nicotine, caffeine or recreational drugs. I have ensured patient is of stable mental and physical health today. We have discussed appropriate F/U schedule as well as blood work and vaccinations that apply. All questions answered and patient is sent home pleased, without concerns. Jan, Urinary frequency (ICD-10 - R35.0) Eval for abnormalities Jan, Erectile dysfunction, unspecified erectile dysfunction type (ICD-10 - N52.9) Consider urology referral. Check labs first. [facility] Other Evaluation note Note Date & Type Note Facility Evaluation note No assessment information availa [facility] Work Phone: History general Narrative - Reported Note Date & Type Note Facility History general Narrative - Reported Type Surgical History knee surgery left [facility] Other Hospital course Narrative Note Date & Type Note Facility Hospital course Narrative No data available for this section [facility] Hospital Discharge instructions Note Date & Type Note Facility Hospital Discharge instructions No data available for this section [facility] Progress note Note Date & Type Note Facility Progress note No data available for this section [facility] Summary Purpose Family History Relationship Condition Age at Onset Recorded Date/T nishant father Hypertension Unknown mother Diabetes mellitus Unknown Hypertension Unknown Advance Directives Advance Directive Response Recorded Date/ Time Advance Directives No June 17, 2024 2:53pm Reason for Referral Reason *FU 03/12 Urinary frequency - last OV and labs. thanks Diagnosis 1 Urinary frequency (R 35.0) Referral Organization [facility] Referring Provider First Name Benita Referring Provider Last Name Kelsey Referring Provider Specialty Family [facility] Referred Organization [facility] Referred Provider Junior Hough Referred Address [address],[place], [place],[address] Referred Provider Specialty Urology Referral Priority Routine General Notes Gaviota Echols 12:30:21 PM >received today,attachments made, notes locked, referral faxed Chief Complaint and Reason for Visit Chief Complaint both ear stuffed up Additional Source Comments (unrecognized sect ion and content) No Status Records FoundNo Status Records Found INFORMATION SOURCE (unrecogn ized section and content) DATE CREATED AUTHOR 09/26/2020 [facility] DATE CREATED AUTHOR AUTHOR'S ORGANIZ ATION 07/18/2023 [facility] REASON FOR VISIT (unrecogniz ed section and content) WELLNESSNo InformationLEFT E ARACHE Patient Care team informatio n (unrecognized section and content) Team Status: Active Member Role Status Dates Benita Cole MD Primary Care Provider Active Team Status: Inactive Member Role Status Dates Benita Cole MD Primary Care Provide r, Attending Provider Active Start: June 17, 2024 End: June 17, 2024 Goals (unrecognized section and content) Goals may be documented in a n alternate section FOR RECORDS PERTAINING TO PATIENTS WHO ARE OR HAVE BEEN ENROLLED IN A CHEMICAL DEPENDENCY/SUBSTANCEABUSE PROGRAM, SOME INFORMATION MAY BE OMITTED. This clinical summary was aggregated from multiple sources. Caution should be exercised in using it in the provision of clinical care. This summary normalizes information from multiple sources, and as a consequence, information in this document may materially change the coding, format and clinical context of patient data. In addition, data may be omitted in some cases. CLINICAL DECISIONS SHOULD BE BASED ON THE PRIMARY CLINICAL RECORDS. [employer] [facility]. provides no warranty or guarantee of the accuracy or completeness of information in this document.
[2024-08-30 11:06] LABS: Alanine Aminotransferase 71 U/L (16-63); Albumin Globulin Ratio 0.8; Albumin Level 3.6 g/dL (3.4-5.0); Alkaline Phosphatase 120 U/L (46-116); Anion Gap 11.5; Aspartate Amino Transferase 34 U/L (15-37); BUN Creatinine Ratio 15.9; Bilirubin Total 0.5 mg/dL (0.2-1.0); Calcium 8.5 mg/dL (8.5-10.1); Carbon Dioxide 25.6 mmol/L (21.0-32.0); Chloride 104 mmol/L (98-107); Estimated GFR (African America >60 (>=60 mL/min/1.73m^2); Estimated GFR (Non-African Ame >60 (>=60 mL/min/1.73m^2); Globulin 4.6 g/dL; Glucose 141 mg/dL (74-106); Potassium 4.1 mmol/L (3.5-5.1); Sodium 137 mmol/L (136-145); Total Protein 8.2 g/dL (6.4-8.2)
== END 2024-08-30 10:23 | disposition home or self-care (01) ==
LOC: LAB 10:23
PROVIDERS: PCP Family Medicine; Visit Provider Family Medicine
DX: R19.7 Diarrhea, unspecified (principal)
CPT/HCPCS: 36415; 80053; 85025

== ENCOUNTER 2024-10-06 10:48 | Outpatient (OUT) | payer OTHER, SELFPAY ==
--- NOTE | 2024-10-06 10:52 | XR_ITS ---
The [address] [address] Patient Name: PEDRO ROMERO MRN: [id number] date: 1975 Sex: M Assigned Patient Location: [facility] Current Patient Location: Accession/Order Number: [id number] Exam Date: 10/06/2024 10:55 Report Date: 10/08/2024 11:26 At the request of: MARINA COLE Procedure: XR shoulder RT min 2V PROCEDURE: XR shoulder RT min 2V COMPARISON: None. HISTORY: Pain In Right Shoulder FINDINGS: BONES:No fracture, acute abnormality, or significant arthropathy. SOFT TISSUES:Negative. No visible soft tissue swelling. EFFUSION:None visible. OTHER: Negative. XR/XR shoulder RT min 2V IMPRESSION: No acute cardiopulmonary process Electronically authenticated by: DEVEN MTZ Date: 10/08/2024 11:26
--- OUTSIDE RECORDS SUMMARY | 2024-10-06 10:52 | XMS_ITS | CCD ---
Author Organization [facility] Care Team Providers Care Director Of Officiating Name Role Phone BENITA COLE [employer] Unavailable [...] Medication Allergies] Propensity to adverse reactions (disorder) [facility] Repository (1 source) patient allergy list reviewed by nurse or physicia Propensity to adverse reactions Comment:Done [employer] Other (1 source) Allergies Reconciled Propensity to adverse reactions Unknown [employer] Other Medications Current Medications Medication Drug Class(es) Dates Sig (Normalized) Sig (Original) 24 hr alfuzosin hydrochloride 10 mg extended release oral tablet (1 source) alpha-Adrenergic Pawel Start: 05-26-2023 End: 05-20-2024 take 1 tablet by mouth once daily alfuzosin 10 mg ER Tab 10 mg = 1 tab(s), Oral, Daily, X 30 day(s), # 30 tab(s), Refills(s) 11, Pharmacy: [facility], 169, cm, 05/26/23 13:52:00 EDT, Height/Length [...] Active metFORMIN hydrochloride 1000 mg oral tablet (4 sources) Biguanide Start: 10-05-2024 take 1 tablet by mouth once daily Metformin 1,000 mg tablet Active 1 TAB PO Daily October 05, 2024 12:00am [employer] tablet with a meal Orally Once a day; Note: Source Status: Taking; Refills: 2; Provider: Marie Benoit Start: 03-05-2023 metformin 1000 mg Tab Refills(s) [...] completed, # 2 tab(s), Refills(s) 0, Pharmacy: [facility], 169, cm, 05/26/23 13:52:00 EDT, Height/Length Dos... Start Date: 05/26/23 Status: Ordered fluticasone (1 source) Corticosteroid Start: 06-17-2024 End: 06-17-2024 take 1 spray(s) nasal route once daily Fluticasone Furoate Discontinued 2 SPRAY INTRANASAL Daily 6.6 June 17, 2024 12:00am June 17, 2024 3:33pm into each nostril Fluticasone Furoate 27.5 mcg/actuation spray,suspension (1 source) Start: 06-17-2024 End: 06-17-2024 take 1 spray(s) nasal route once daily Fluticasone Furoate 27.5 mcg/actuation spray,suspension Discontinued 2 SPRAY INTRANASAL Daily 6.6 June 16, 2024 11:00pm June 17, 2024 2:33pm into each nostril Problems Active Problems Problem Classification Problem Date Documented Da te Episodic/Chronic Diabetes mellitus with complications (3 sources) [...] Translations: [Pain in right thigh] Episodic Other gastrointestinal disorders (1 source) Diarrhea; Translations: [Diarrhea, unspecified] 08-27-2024 Episodic Other gastrointestinal disorders (1 source) Diarrhea, unspecified; Translations: [Diarrhea] 08-23-2024 Episodic Other male genital disorders (6 sources) Male erectile dysfunction, unspecified; Translations: [Impotence] Onset: 09-26-2015 Chronic Other non-traumatic joint disorders (2 sources) Pain in right shoulder; Translations: [Right shoulder pain] 10-05-2024 Episodic Other nutritional; endocrine; and metabolic disorders (1 [...] unspecified] Chronic Otitis media and related conditions (2 sources) Unspecified nonsuppurative otitis media, left ear; Translations: [Acute transudative otitis media] Episodic Unclassified (1 source) Asymptomatic microscopic hematuria [...] Test Name Value Interpretation Reference Range Facility Basophils Auto (Bld) [#/Vol] on 08-30-2024 Basophils (Bld) [#/Vol] Automated basophil count 0.0-0.1 [facility] Basophils/100 WBC Auto (Bld) on 08-30-2024 Basophils/100 WBC (Bld) Automated basophil % 0.2-2.0 [facility] Eosinophils/100 WBC Auto (Bl d)on 08-30-2024 Eosinophils/100 WBC (Bld) Automated eosinophil % 0.9-7.0 [facility] Erythrocyte distribution wid th Auto (RBC) [Ratio]on 08-30-2024 Erythrocyte distribution width (RBC) [Ratio] Erythrocyte distribution width [Ratio] by Automated count 11.0-15.0 [facility] Estimated glomerular filtrat ion rate (GFR) non- Americanon 08-30-2024 GFR/1.73 sq M.predicted among non-blacks MDRD (S/P/Bld) [Vol rate/Area] Estimated glomerular filtration rate (GFR) non- >=60 mL/min/1.73m 2 [facility] Globulin Calc (S) [Mass/Vol] on 08-30-2024 Globulin (S) [Mass/Vol] Serum globulin measurement by calculation (mass/volume) [facility] Hematocrit Auto (Bld) [Volum e fraction]on 08-30-2024 Hematocrit (Bld) [Volume fraction] Hematocrit [Volume Fraction] of Blood by Automated count 42.0-54.0 [facility] Hemoglobin [Mass/volume] in Bloodon 08-30-2024 Hemoglobin (Bld) [Mass/Vol] Hemoglobin [Mass/volume] in Blood 14.0-18.0 [facility] Laboratory - Chemistry and C hemistry - challengeon 08-30-2024 Albumin [Mass/Vol] 3.6 g/dL 3.4-5.0 [facility] ALP [Catalytic activity/Vol] 120 U/L High 46-116 [facility] ALT [Catalytic activity/Vol] 71 U/L High 16-63 [facility] AST [Catalytic activity/Vol] 34 U/L 15-37 [facility] Bilirubin [Mass/Vol] 0.5 mg/dL 0.2-1.0 [facility] Calcium [Mass/Vol] 8.5 mg/dL 8.5-10.1 [facility] Chloride [Moles/Vol] 104 mmol/L 98-107 [facility] CO2 [Moles/Vol] 25.6 mmol/L 21.0-32.0 [facility] Creatinine [Mass/Vol] 0.88 mg/dL 0.70-1.30 [facility] GFR/1.73 sq M.predicted MDRD (S/P/Bld) [Vol rate/Area] mL/min/{1.73_m2} >=60 mL/min/1.73m 2 [facility] Glucose [Mass/Vol] 141 mg/dL High 74-106 [facility] Potassium [Moles/Vol] 4.1 mmol/L 3.5-5.1 [facility] Protein [Mass/Vol] 8.2 g/dL 6.4-8.2 [facility] Sodium [Moles/Vol] 137 mmol/L 136-145 [facility] Urea nitrogen [Mass/Vol] 14.0 mg/dL 7.0-18.0 [facility] Urea nitrogen/Creatinine [Mass ratio] 15.9 mg/mg [facility] Laboratory - Hematology and Cell countson 08-30-2024 Immature granulocytes/100 WBC (Bld) 1.1 % High 0.0-0.5 [facility] Leukocytes [#/volume] correc esme for nucleated erythrocytes in Blood by Automated counon 08-30-2024 WBC corrected for nucl RBC Auto (Bld) [#/Vol] Leukocytes [#/volume] corrected for nucleated erythrocytes in Blood by Automated coun 4.0-11.0 [facility] Lymphocytes Auto (Bld) [#/Vo l]on 08-30-2024 Lymphocytes (Bld) [#/Vol] Lymphocytes [#/volume] in Blood by Automated count 1.2-3.8 [facility] Lymphocytes/100 WBC Auto (Bl d)on 08-30-2024 Lymphocytes/100 WBC (Bld) Lymphocytes/100 leukocytes in Blood by Automated count Low 20.5-60.0 [facility] MCH Auto (RBC) [Entitic mass ]on 08-30-2024 MCH (RBC) [Entitic mass] MCH [Entitic mass] by Automated count 25.9-34.0 [facility] MCHC Auto (RBC) [Mass/Vol]on 08-30-2024 MCHC (RBC) [Mass/Vol] MCHC [Mass/volume] by Automated count 29.9-35.2 [facility] MCV Auto (RBC) [Entitic vol] on 08-30-2024 MCV (RBC) [Entitic vol] MCV [Entitic volume] by Automated count 80.0-94.0 [facility] Monocytes Auto (Bld) [#/Vol] on 08-30-2024 Monocytes (Bld) [#/Vol] Automated blood monocyte count 0.3-0.8 [facility] Monocytes/100 WBC Auto (Bld) on 08-30-2024 Monocytes/100 WBC (Bld) Automated monocyte % 1.7-12.0 [facility] Neutrophils Auto (Bld) [#/Vo l]on 08-30-2024 Neutrophils (Bld) [#/Vol] Neutrophils [#/volume] in Blood by Automated count 1.4-6.5 [facility] Neutrophils/100 WBC Auto (Bl d)on 08-30-2024 Neutrophils/100 WBC (Bld) Automated neutrophil % 43.0-75.0 [facility] No Panel Informationon 08-30 Eosinophils # (Auto) 0.2 10 3/uL 0.0-0.7 [facility] Immature Granulocyte # (Auto) 0.09 10 3/uL High 0.00-0.03 [facility] Platelet mean volume Auto (B ld) [Entitic vol]on 08-30-2024 Platelet mean volume (Bld) [Entitic vol] Platelet mean volume [Entitic volume] in Blood by Automated count 9.5-13.5 [facility] Platelets Auto (Bld) [#/Vol] on 08-30-2024 Platelets (Bld) [#/Vol] Platelets [#/volume] in Blood by Automated count Low 150-450 [facility] RBC Auto (Bld) [#/Vol]on RBC (Bld) [#/Vol] Erythrocytes [#/volume] in Blood by Automated count 4.70-6.10 [facility] Serum or plasma albumin/glob ulin mass ratioon 08-30-2024 Albumin/Globulin [Mass ratio] Serum or plasma albumin/globulin mass ratio [facility] Serum or plasma anion gap de terminationon 08-30-2024 Anion gap [Moles/Vol] Serum or plasma anion gap determination [facility] Provider Letteron 07-16-2023 Provider Letter July 16, 2023 AURELIANODarian [place] [address] : 1975 Dear Keturah Atul, We have been trying to reach you with no success. It is important that you return our call regarding your CT and PSA results upon receiving this letter. Also, at the time of your call, please provide us with your current information. Please call our office at [phone] Thank you for your prompt attention to this matter. Sincerely, [facility] [address] [place] [address] [facility] Lab Reportson 07-14-2023 Lab Reports [id number] #1.00TIFF [facility] RAD - CT Reporton 06-27-2023 RAD - CT Report [id number] #1.00TIFF [facility] Operative Reporton Operative Report [id number] #1.00TIFF [facility] Pre-Certification Formon Pre-Certification Form [id number] #1.00TIFF [facility] Insurance Correspondenceon Insurance Correspondence [id number] 9#1.00TIFF [facility] Pre-Certification Formon Pre-Certification Form [id number] #1.00TIFF [facility] Urine Cytology ([facility])on Urine Cytology Diagnosis Info Invalid Interpretation Code [facility] Comment on above: Result Comment: A:Ur ine,Urine:Voided Interpretation - MicroScopic Description - Adequacy - Gross Description Site ID:A color Yellow fixative Alcohol Specimen designated Urine received in alcohol preservative and labeled with the patient?s name, consists of 80ml clear yellow fluid. Electronically signed by : on: 06/02/2023 14:58:41 Performed By: #### 1 [id number] ####[facility] [address] [place] [address] Consent for Procedure/Surger yon 05-27-2023 Consent for Procedure/Surgery [id number]#1.00CD:127 Normal [facility] Formson 05-27-2023 Forms [id number]# 1.00CD:127 Normal [facility] Physician Referralon 023 Physician Referral [id number]# 1.00CD:127 Normal [facility] Ambulatory Visit Summaryon 0 05-26-2023 Ambulatory Visit Summary AURELIANO ROMERO :1975 Visit Date:05/26/2023 Ambulatory Visit Instructions Your Diagnosis BPH with obstruction/lower urinary tract symptoms Urge incontinence Asymptomatic microscopic hematuria Screening PSA (prostate specific antigen) Tests Performed Urnls Dip Stick Auto w/o Microscopy POC 59724 CT Urogram -- Results Pending -- Please visit your patient portal for your results or contact your primary care physician. Your Care Team Attending Physician - Leo FRAZIER MD Primary Care Physician - BENITA COLE MD Referring Physician - BENITA COLE MD This [...] Following Appointments Follow Up with JESUS ZENG, Leo Kelly, BEATRICE When: Where: [facility] [address] , [place] [address] [phone] Medications What How Much When Instructions New alfuzosin (alfuzosin 10 mg ER Tab) 1 Tablets By Mouth Every day Duration: 30 Days Refills: 11 Pickup at [facility] New ciprofloxacin (Cipro 500 mg Tab) 1 Tablets By Mouth As Directed Patient to take 1 tab the day before procedure and the 2nd tab the day of procedure once completed Pickup at [facility] Unchanged metformin (metformin 1000 mg Tab) Contact prescribing physician if questions or concerns Unchanged naproxen By Mouth Contact prescribing physician if questions or concerns Pharmacy Information [facility]: [address] [place], [place] [id number] [phone] Test Results Urnls Dip Stick Auto w/o Microscopy POC 45968 (05/26/2023) Bilirubin Urine Dipstick - Negative Blood Urine Dipstick - 1+ Small Glucose Urine Dipstick - Negative Ketones Urine Dipstick - Negative Leukocytes Urine Dipstick - Negative Nitrite Urine Dipstick - Negative Protein Urine Dipstick - 1+ (30 mg/dl) Specific [place] Urine Dipstick - 1.025 Urine Appearance Urine [...] including vitamins, herbs, eye drops, creams, and wquv-rqq-ptccoog medicines. ? Any problems you or family [...] care provi (more content not included)... Normal [facility] Urine Cytology ([facility])on 0 05-26-2023 Method of Extraction Voided Normal [facility] Comment on above: Performed By: #### 1 [id number] ####[facility] [address] [place] [address] Number of Jars 1 Invalid Interpretation Code [facility] Comment on above: Performed By: #### 1 [id number] ####[facility] [address] [place] [address] Specimen Urine Normal [facility] Comment on above: Performed By: #### 1 [id number] ####[facility] [address] [place] [address] Type of Service Technical Only Normal [facility] Comment on above: Performed By: #### 1 [id number] ####[facility] [address] [place] [address] Urology Office/Clinic Noteon 05-26-2023 Urology Office/Clinic Note [...] qd. SEs discussed. Rx sent to [facility]. 2. Urge incontinence (N39.41: Urge incontinence) See [...] Local anesthesia. Prophylactic abx sent to [facility]. 4. Screening PSA (prostate specific antigen) (Z12.5: Encounter for screening for malignant neoplasm of prostate) -PSA to be drawn IO today. Follow-up With When Contact Information JESUS ZENG, Leo Kelly, URL [facility] [address] [place] [address] [phone] Additional Instructions: schedule cysto, CTU Patient Education Cystoscopy I, Paris Leroy, personally scribed for Dr. Frazier on 05/26/2023 14:59:43. . Documentation recorded by the scribe, Paris Leroy, accurately reflects the services( (more content not included)... Normal [facility] Comment on above: Result Comment: Elec tronically Signed By: Leo FRAZIER MD R\.br\Date and Time Signed: 05/26/23 15:01 EDT\.br\Electronically Co-Signed By: Paris Leroy\.br\Date and Time Co-Signed: 05/26/23 15:00 EDT LIPID PROFILEon 07-07-2020 CHOL-HDL RATIO NORM SEE BELOW Normal [facility] Comment on above: Result Comment: 3.3 - 4.4 LOW RISK 4.4 - 7.1 AVERAGE RISK 7.1 - 11.0 MODERATE RISK >11.0 HIGH RISK Performed By: #### C MP, LIPID #### [facility] [address] [address] Parth Lisette Cholesterol [Mass/Vol] 144 mg/dL Normal <=200 [facility] Comment on above: Performed By: #### C MP, LIPID #### [facility] [address] [place] [address] Parth Lisette Cholesterol in HDL [Mass/Vol] 43 mg/dL Normal [facility] Comment on above: Performed By: #### C MP, LIPID #### [facility] [address] [id number] Parth Lisette Cholesterol in HDL [Mass/Vol] > or = 60 mg/dl - LOW CARDIOVASCULAR RISK <40 mg/dl - HIGH CARDIOVASCULAR RISK Normal [facility] Comment on above: Performed By: #### C MP, LIPID #### [facility] [address] [id number] Parth Lisette Cholesterol in LDL [Mass/Vol] 90.8 mg/dL Normal [facility] Comment on above: Performed By: #### C MP, LIPID #### [facility] [address] [place] [address] Parth Lisette Cholesterol in LDL [Mass/Vol] SEE BELOW Normal [facility] Comment on above: Result Comment: <100 mg/dl OPTIMAL 100 - 129 mg/dl NEAR OR ABOVE OPTIMAL 130 - 159 mg/dl BORDERLINE HIGH 160 - 189 mg/dl HIGH >190 mg/dl VERY HIGH Performed By: #### C MP, LIPID #### [facility] [address] [place], [place] [id number] Parth Lisette Cholesterol.total/Cho lesterol in HDL [Mass ratio] 3.3 {ratio} Normal [facility] Comment on above: Performed By: #### C MP, LIPID #### [facility] [address] [place], [place] [address] Parth Lisette Triglyceride [Mass/Vol] 51 mg/dL Normal <=150 [facility] Comment on above: Performed By: #### C MP, LIPID #### [facility] [address] [place], [place] [address] Parth Lisette VLDL CALC 10.2 mg/dL Normal [facility] Comment on above: Performed By: #### C MP, LIPID #### [facility] [address] [place], [place] [id number] Parththomas Arceen PROF 14(COMP METB)on 020 Albumin [Mass/Vol] 4.0 g/dL Normal 3.5-5.0 [facility] Comment on above: Performed By: #### C MP, LIPID #### [facility] [address] [place], [place] [address] Parth Lisette Albumin/Globulin [Mass ratio] 1.0 {ratio} Normal [facility] Comment on above: Performed By: #### C MP, LIPID #### [facility] [address] [place], [place] [address] Parth Lisette ALP [Catalytic activity/Vol] 81 U/L Normal 38-126 [facility] Comment on above: Performed By: #### C MP, LIPID #### [facility] [address] [place], [place] [address] Parth Lisette ALT [Catalytic activity/Vol] 40 U/L Normal 21-72 [facility] Comment on above: Performed By: #### C MP, LIPID #### [facility] [address] [id number] Parth Lisette Anion gap [Moles/Vol] 11.3 mmol/L Normal [facility] Comment on above: Performed By: #### C MP, LIPID #### [facility] [address] [id number] Parth Lisette AST [Catalytic activity/Vol] 18 U/L Normal 17-59 [facility] Comment on above: Performed By: #### C MP, LIPID #### [facility] [address] [id number] Parth Lisette Bilirubin Ql (U) 0.7 mg/dL Normal 0.2-1.3 [facility] Comment on above: Performed By: #### C MP, LIPID #### [facility] [address] [place] [address] Parth Lisette Calcium [Mass/Vol] 9.0 mg/dL Normal 8.4-10.2 [facility] Comment on above: Performed By: #### C MP, LIPID #### [facility] [address] [place] [address] Parth Lisette Chloride [Moles/Vol] 102 mmol/L Normal 98-107 [facility] Comment on above: Performed By: #### C MP, LIPID #### [facility] [address] [id number] Parth Lisette CO2 [Moles/Vol] 27.7 mmol/L Normal 22.0-30.0 [facility] Comment on above: Performed By: #### C MP, LIPID #### [facility] [address] [id number] Parth Lisette Creatinine [Mass/Vol] 0.83 mg/dL Normal 0.66-1.25 [facility] Comment on above: Performed By: #### C MP, LIPID #### [facility] [address] [id number] Parth Lisette EGFR-AF ARMENIAN >60 Normal >=60 [facility] Comment on above: Performed By: #### C MP, LIPID #### [facility] [address] [place], [place] [address] Parth Lisette EGFR-NON AF ARMENIAN >60 Normal >=60 [facility] Comment on above: Performed By: #### C MP, LIPID #### [facility] [address] [place], [place] [address] Patrh Lisette Globulin (S) [Mass/Vol] 4.2 g/dL Normal [facility] Comment on above: Performed By: #### C MP, LIPID #### [facility] [address] [id number] Parth Lisette Glucose [Mass/Vol] 105 mg/dL Normal 74-106 [facility] Comment on above: Performed By: #### C MP, LIPID #### [facility] [address] [place] [address] Parth Lisette Potassium [Moles/Vol] 4.0 mmol/L Normal 3.4-5.0 [facility] Comment on above: Performed By: #### C MP, LIPID #### [facility] [address] [place], [place] [address] Parth Lisette Protein [Mass/Vol] 8.2 g/dL Normal 6.1-8.2 [facility] Comment on above: Performed By: #### C MP, LIPID #### [facility] [address] [place], [place] [address] Parth Lisette Sodium [Moles/Vol] 137 mmol/L Normal 137-145 [facility] Comment on above: Performed By: #### C MP, LIPID #### [facility] [address] [id number] Parth Lisette Urea nitrogen [Mass/Vol] 18.0 mg/dL Normal 9.0-20.0 [facility] Comment on above: Performed By: #### C MP, LIPID #### [facility] [address] [id number] Parth Lisette Urea nitrogen/Creatinine [Mass ratio] 21.7 mg/mg Normal [facility] Comment on above: Performed By: #### C MP, LIPID #### [facility] [address] [address] Parth Knox XR HUMERUS LT MIN 2Von 06-22 XR HUMERUS LT MIN 2V EXAM: XR ELBOW LT 2V, XR FOREARM LT 2 VIEWS, XR HUMERUS [...] by: THOMAS STUART Date: 2020-06-21 23:25 Normal [facility] US VENOUS DOPPLER L Gonzalo US VENOUS [...] by: JEWELL CABALLERO Date: 2020-06-21 17:30 Normal [facility] XR WRIST LT 2Von 06-21-2020 XR WRIST [...] PATY DEL REAL Date: 2020-06-21 18:46 Normal [facility] Vital Signs Date Time Vital Sign Value Performing Clinician Facility 10-05-2024 14:38-0500 Body height 172.72 cm [facility] 10-05-2024 14:38-0500 Body mass index (BMI) [Ratio] 41.6 kg/m2 [facility] 10-05-2024 14:38-0500 Body weight 124.28 kg [facility] 10-05-2024 14:38-0500 Diastolic blood pressure 92 mm[Hg] [facility] 10-05-2024 14:38-0500 Heart rate 87 /min [facility] 10-05-2024 14:38-0500 Systolic blood pressure 160 mm[Hg] [facility] 08-23-2024 09:42-0500 Body height 172.72 cm [facility] 08-23-2024 09:42-0500 Body mass index (BMI) [Ratio] 42.3 kg/m2 [facility] 08-23-2024 09:42-0500 Body weight 126.09 kg [facility] 08-23-2024 09:42-0500 Diastolic blood pressure 99 mm[Hg] [facility] 08-23-2024 09:42-0500 Heart rate 85 /min [facility] 08-23-2024 09:42-0500 Systolic blood pressure 167 mm[Hg] [facility] 06-17-2024 15:09-0400 Body height 172.72 cm [facility] 06-17-2024 15:09-0400 Body mass index (BMI) [Ratio] 43 kg/m2 [facility] 06-17-2024 15:09-0400 Body weight 128.36 kg [facility] 06-17-2024 15:09-0400 Diastolic blood pressure 95 mm[Hg] [facility] 06-17-2024 15:09-0400 Heart rate 80 /min [facility] 06-17-2024 15:09-0400 Systolic blood pressure 172 mm[Hg] [facility] 09-20-2023 13:20-0500 Body height 172.72 cm Nisa Tanmond Other [facility] [employer] Other 09-20-2023 13:20-0500 Body mass index (BMI) [Ratio] 42.57 kg/m2 Nisa Jacque Other [employer] Other 09-20-2023 13:20-0500 Body temperature 99 [degF] Nisa Jacque Other [employer] Other 09-20-2023 13:20-0500 Body weight 127.01 kg Nisa Jacque Other [employer] Other 09-20-2023 13:20-0500 Diastolic blood pressure 100 mm[Hg] Nisa Jacque Other [employer] Other 09-20-2023 13:20-0500 SaO2% (BldA) [Mass fraction] 95 % Nisa Jacque Other [employer] Other 09-20-2023 13:20-0500 Systolic blood pressure 160 mm[Hg] Nisa Jacque Other [employer] Other 2023 11:30-0400 Body height 172.72 cm Benita Cole Other [employer] Other 2023 11:30-0400 Body mass index (BMI) [Ratio] 45.61 kg/m2 Benita Cole Other [employer] Other 2023 11:30-0400 Body weight 136.08 kg Benita Cole Other [employer] Other 2023 11:30-0400 Diastolic blood pressure 90 mm[Hg] Benita Cole Other [employer] Other 2023 11:30-0400 SaO2% (BldA) [Mass fraction] 97 % Bentia Cole Other [employer] Other 2023 11:30-0400 Systolic blood pressure 148 mm[Hg] Benita Cole Other [employer] Other Encounters Encounter Date Encounter Type Care Provider Facility Start: 10-05-2024 End: 10-05-2024 [facility] [facility] Work Phone: Start: 10-05-2024 End: 10-05-2024 Patient encounter procedure [facility] Physician [facility] Work Phone: Start: 08-30-2024 Non-patient / Non-visit [facility] Physician [facility] [employer] Work Phone: Start: 08-23-2024 End: 08-23-2024 Patient encounter procedure [facility] Physician [facility] Work Phone: Start: 06-17-2024 End: 06-17-2024 ambulatory [facility] Work Phone: Start: 06-17-2024 End: 06-17-2024 Patient encounter procedure [facility] Physician [facility] Work Phone: Start: 09-20-2023 End: 09-20-2023 ambulatory Nisa Santillan Other [employer] Other Start: 09-20-2023 Office outpatient vi sit 15 minutes Nisa Jacque [facility] [place] Start: 06-24-2023 End: 06-25-2023 ambulatory Leonickolas FRAZIER Facility:[id number] Start: 05-26-2023 End: 05-26-2023 Lab Drop off Leo FRAZIER [facility] Start: 05-26-2023 End: 05-27-2023 ambulatory Leonickolas FRAZIER Facility:[facility] Start: 03-06-2023 ambulatory Leo FRAZIER Facility :[facility] Start: 02-28-2023 End: 02-28-2023 ambulatory Benita Cole Other [employer] Other Start: 02-28-2023 Telephone encounter Benita Cole [facility] Start: 2023 End: 2023 ambulatory Benita Cole Other [employer] Other Start: 2023 Encounter for genera l adult medical examination without abnormal findings Benita Cole [facility] Start: 2023 Periodic preventive med est patient 40-64yrs Benita Cole [facility] Start: 07-11-2020 Encounter for genera l adult medical examination without abnormal findings BNEITA COLE [facility] Start: 07-07-2020 Adult health examination Nisa Tanmond Other [employer] Other Start: 07-07-2020 End: 07-08-2020 Patient encounter procedure BENITA COLE Facility:[facility] Start: 06-21-2020 End: 06-22-2020 Patient encounter procedure BENITA COLE Facility:[facility] Encounter for genera l adult medical examination without abnormal findings BENITA COLE [facility] Procedures Date Procedure Procedure Detail Performing Clinician History of operative procedure on knee Leo FRAZIER Plan of Treatment Date Care Activity Detail Author Patient Education Rotator Cuff T endinitis Stretching Exercises [facility] Work Phone: XR Shoulder - right Views [facility] Payers Date Payer Category Payer Unknown [id number] 1975 Unknown [id number] [id number] [id number] 1975 Unknown [id number] 2.16.84 [id number] 1975 Unknown [id number] 2.16.8 [id number] 1975 Unknown [id number] 2.16.8 [id number] 1975 Unknown [id number] 2.16.8 [id number] 1975 Unknown [id number] 2.16.8 [id number] 1959 Unknown [id number] Unknown [id number] 2.16.8 [id number] Social History Date Type Detail Facility Sex Assigned At [facility] Start: 05-26-2023 End: 06-16-2024 Tobacco smoking status Never smoked tobacco (finding) [facility] Start: 1975 Sex Assigned At Male [facility] Start: 10-05-2024 Sex Male (finding) [facility] Clinical Notes 2023 to 08-23-2024 Note Date & Type Note Facility 08-23-2024 Evaluation note Diagnosis Onset Date Resolution Diarrhea acute August 23, 2024 9:37am Right shoulder pain acute Febru glen 2024 2:35pm [facility] Work Phone: [phone] 397-637801-20-2024 Evaluation note* Encounter Date Diagnosis Assessment Notes Treatment Notes Treatment Clinical Notes Sep, Left otitis media with effusion (ICD-10 - H65.92) Drink plenty fluids, get plenty of rest. Take the amoxicillin with clavulanate as prescribed until gone. Take the prednisone as prescribed until gone. Take Tylenol or Motrin for aches pains or fevers. Follow-up with your family physician if no improvement in 2 to 3 days. [employer] Other 09-25-2023 NoteUrology Cystoscopy Cystoscopy is a procedure that is [...] including vitamins, herbs, eye drops, creams, and gypo-nme-wezflcl medicines. ? Any problems you or family [...] tells you to take them. ? Taking iyhl-pje-osahscd medicines, vitamins, herbs, and supplements. Tests You [...] taken to help prevent infection. These steps mayinclude: ? Washing skin with a germ-killing soap. [...] these instructions at home: Medicines ? Take dxbe-tig-lzkhcjp and prescription medicines only as told by [...] procedure, it is up to you to getyour test results. Ask your health care provider, or the department th (more content not included)...[facility] 05-26-2023 Evaluation + Plan note Diagnostic Tests Pending * Urine Cytology ([facility]) 05/26/23 [facility]06-30-2023 Evaluation note* Encounter Date Diagnosis Assessment Notes Treatment Notes Treatment Clinical Notes Jan, Urinary frequency (ICD-10 - R35.0) Jan, Controlled type 2 diabetes mellitus with hyperglycemia, without long-term current use of insulin (ICD-10 - E11.65) [employer] Other 06-20-2023 Evaluation note* Encounter Date Diagnosis Assessment Notes Treatment Notes Treatment Clinical Notes Jan, Well adult exam (ICD-10 - [...] N52.9) Consider urology referral. Check labs first. [employer] Other Evaluation noteNo assessment information available [facility] Work Phone: History general Narrative - Reported* Type Description Date Surgical History knee surgery left [employer] Other Hospital course Narrative No data available for this [facility] No data available for this [facility] No data available for this section [facility] Summary Purpose Family History Relationship Condition Age at Onset Recorded Date/T nishant father Hypertension Unknown mother Diabetes mellitus Unknown Hypertension Unknown Advance Directives Advance Directive Response Recorded Date/ Time Advance Directives No June 17, 2024 2:53pm Advance Directive Response Recorded Date/ Time Advance Directives No June 17, 2024 1:53pm Reason for Referral Reason *FU 03/12 Urinary frequency - last OV and labs. thanks Diagnosis 1 Urinary frequency (R 35.0) Referral Organization [facility] Referring Provider First Name Benita Referring Provider Last Name Marie Referring Provider Specialty Family [facility] Referred Organization [facility] Referred Provider Junior Hough Referred Address [address],[place], [place],[address] Referred Provider Specialty Urology Referral Priority Routine General Notes Gaviota Echols 12:30:21 PM >received today,attachments made, notes locked, referral faxed Chief Complaint and Reason for Visit Chief Complaint both ear stuffed up Chief Complaint Admit Date stomach issues August 23, 2024 9:37am R Shoulder Pain October 05, 2024 2 :35pm Reason for Visit Admit Date Diarrhea August 23, 2024 9:37am Right shoulder pain October 05, 2024 2 :35pm Additional Source Comments (unrecognized sect ion and content) No Status Records FoundNo Status Records Found INFORMATION SOURCE (unrecogn ized section and content) DATE CREATED AUTHOR 09/26/2020 [facility] DATE CREATED AUTHOR AUTHOR'S ORGANIZ ATION 07/18/2023 [facility] REASON FOR VISIT (unrecogniz ed section and content) WELLNESSNo InformationLEFT E ARACHE Patient Care team informatio n (unrecognized section and content) Team Status: Active Member Role Status Dates Benita Cole MD Primary Care Provider Active Team Status: Inactive Member Role Status Dates Benita Cole MD Primary Care Provide r, Attending Provider Active Start: June 17, 2024 End: June 17, 2024 Team Status: Inactive Member Role Status Dates Benita Cole MD Primary Care Provide r, Attending Provider Active Start: August 23, 2024 End: August 23, 2024 Team Status: Active Member Role Status Dates Benita Cole MD Primary Care Provide r, Attending Provider Active Start: August 30, 2024 Team Status: Inactive Member Role Status Dates Benita Cole MD Primary Care Provide r, Attending Provider Active Start: October 05, 2024 End: October 05, 2024 Goals (unrecognized section and content) Goals [...] BE BASED ON THE PRIMARY CLINICAL RECORDS. [employer] provides no warranty or guarantee of the accuracy or completeness of information in this document.
== END 2024-10-06 10:49 | disposition home or self-care (01) ==
LOC: RAD 10:49
PROVIDERS: PCP Family Medicine; Visit Provider Family Medicine
DX: M25.511 Pain in right shoulder (principal)
CPT/HCPCS: 73030

== ENCOUNTER 2025-01-21 09:20 | Emergency (ER) | payer OTHER, SELFPAY ==
[2025-01-21 09:25] VITALS: BP 178/106; PULSE 94; TEMP 36.8; O2SAT 96; BMI 40.9
[2025-01-21 09:36] VITALS: O2SAT 96
--- NOTE | 2025-01-21 10:03 | XR_ITS ---
The [address] [address] Patient Name: PEDRO ROMERO MRN: [id number] date: 1975 Sex: M Assigned Patient Location: ER Current Patient Location: ER Accession/Order Number: [id number] Exam Date: 01/21/2025 11:07 Report Date: 01/21/2025 11:09 At the request of: NIK MILLER MD Procedure: XR abdomen min 2V XR abdomen min 2V 01/21/2025 11:00 AM SIGNS AND SYMPTOMS: Abdominal pain and left upper quadrant pain, diarrhea PROTOCOL: Frontal radiographs of the abdomen and pelvis COMPARISON: 06/21/2023 FINDINGS: There is a nonobstructive bowel gas pattern. No evidence of free air. No radiodense renal, ureteral or bladder stones. Thoracolumbar spine. XR/XR abdomen min 2V IMPRESSION: No bowel obstruction or free air. No radiodense renal, ureteral, or bladder stones. Impression dictated by: Alonzo Montenegro M.D. 01/21/2025 11:09 AM Dictation Location: [place] [address] Electronically authenticated by: [id number] Y Date: 01/21/2025 11:09
--- NOTE | 2025-01-21 10:09 | ED.GENADUL1 ---
HPI HPI - General Adult General Chief complaint: Nausea/Vomiting/Diarrhea Stated complaint: DIARRHEA ABDOMINAL PAIN Time Seen by Provider: 01/21/25 10:03 Source: patient Mode of arrival: walk-in History of Present Illness HPI narrative: Patient is a 49-year-old male with chief complaint of loose stool/diarrhea since Friday. Patient works during the day, patient has taken Imodium throughout the week so that he could work and not go to the toilet often. Patient has some lower abdominal cramping to the right and left lower abdomen. Patient has no chest pain or shortness of breath. Minimal nausea, no vomiting. The patient has no bowel or bladder changes. Patient saw Dr. Salazar in the office earlier this week. Patient has no new antibiotics has been on recently. Has had no recent traveling. Patient blood pressure is elevated, he just started taking his blood pressure medication again on Friday, he had run out of his blood pressure medication previously. He has no headache chest pain or shortness of breath. Asymptomatic hypertension was discussed at bedside. Patient has mild distention of his lower abdomen, intermittent cramping. No recent constipation. Before Friday he was having soft stool with no acute findings or concerns All systems are negative except as noted/marked. All systems reviewed and otherwise negative. Nurses note and vital signs reviewed and patient is not hypoxic. General: The patient appears well and in no apparent distress. Patient is resting comfortably on cart. Patient is not toxic, lethargic, or listless Skin: Warm, dry, no pallor noted. There is no rash noted. No petechiae, purpura. Head: Normocephalic, atraumatic Eye: Normal conjunctiva, no drainage, EOMI. PERRL Ears, Nose, Mouth, and Throat: oral mucosa is moist. Nares patent. Mouth without vesicles. Cardiovascular: Regular Rate and Rhythm, no murmur, gallop, rub Respiratory: Patient is in no distress, no accessory muscle use, lungs are clear to auscultation, no wheezing, rales or rhonchi Back: non-tender, no CVA tenderness bilaterally to percussion. No CT LS midline pain GI: Hypoactive bowel sounds, mild right lower quadrant and left lower quadrant tenderness to palpation, no masses appreciated. Soft, obese, no flank pain, no peritoneal signs. No rebound, guarding, or rigidity noted. No distention Musculoskeletal: Patient has full range of motion of all of the extremities, no motor, sensory, or focal neurological deficits. Neurological: A&O x4, normal speech Psychiatric: Cooperative Related Data Home Medications ?Medication ?Instructions ?Recorded ?Confirmed losartan 50 mg tablet 50 mg PO DAILY 01/21/25 01/21/25 Previous Rx's ?Medication ?Instructions ?Recorded dicyclomine 20 mg tablet 20 mg PO TID PRN abdominal pain #7 01/21/25 tabs ondansetron 4 mg disintegrating 4 mg PO Q4H PRN nausea and 01/21/25 tablet vomiting 3 days #6 tabs Allergies Allergy/AdvReac Type Severity Reaction Status Date / Time No Known Drug Allergies Allergy Verified 01/21/25 09:33 PFSH PFSH Social History Little interest or pleasure in doing things: not at all Feeling down, depressed, or hopeless: not at all Exam Constitutional Vital Signs, click to edit/add: Last Vital Signs Temp 98.2 F 01/21/25 09:25 Pulse 92 H 01/21/25 10:58 Resp 18 01/21/25 10:58 BP 178/112 H 01/21/25 10:58 Pulse Ox 96 01/21/25 10:58 O2 Del Method Room Air 01/21/25 09:36 Course Vital Signs Vital signs: Vital Signs Temperature 98.2 F 01/21/25 09:25 Pulse Rate 94 H 01/21/25 09:25 Respiratory Rate 18 01/21/25 09:25 Blood Pressure 178/106 H 01/21/25 09:25 Pulse Oximetry 96 01/21/25 09:25 Oxygen Delivery Method Room Air 01/21/25 09:25 Temperature 98.2 F 01/21/25 09:25 Pulse Rate 92 H 01/21/25 10:58 Respiratory Rate 18 01/21/25 10:58 Blood Pressure 178/112 H 01/21/25 10:58 Pulse Oximetry 96 01/21/25 10:58 Oxygen Delivery Method Room Air 01/21/25 09:36 Medical Decision Making [facility] Narrative Medical decision making narrative: Patient seen and examined: IV, fluids, x-ray; education about asymptomatic hypertension Differential diagnosis includes but is not limited to: Gastroenteritis, colitis, obstruction, UTI, kidney stone, diarrhea, C. difficile Diagnostics and management: Patient will have laboratory studies Relevant laboratory interpretation: Patient has minimal elevated white blood cells, BUN 19, total bilirubin 1.3, urine shows no significant signs of infection. Reevaluation: Patient felt better after IV fluids, patient felt slightly more energized. Shared decision making: I discussed with the patient the necessary laboratory findings and radiological findings. Social barriers to healthcare: There are no food insecurities, there is no issue with transportation, there are no insurance barriers. Disposition: I discussed with the patient not using Imodium for the first 10 to 14 days with diarrhea. Patient is to increase fluids, Gatorade or Powerade or water. Patient was sent home with prescription for Zofran, Bentyl. Patient to follow-up with PCP. We have discussed asymptomatic hypertension. Patient is to record a blood pressure log twice a day for the next week or 2. Patient has just restarted his blood pressure medication 2 days ago. Patient did not take his dose today. No questions at discharge patient will take his blood pressure medication when he goes home. Lab Data Labs: Lab Results 01/21/25 01/21/25 01/21/25 Range/Units 10:00 10:15 10:40 WBC 11.7 H (4.0-11.0) 10^3/uL RBC 5.29 (4.70-6.10) 10^6/uL Hgb 15.7 (14.0-18.0) g/dL Hct 45.6 (42.0-54.0) % MCV 86.2 (80.0-94.0) fL MCH 29.7 (25.9-34.0) pg MCHC 34.4 (29.9-35.2) g/dL RDW 13.1 (11.0-15.0) % Plt Count 142 L (150-450) 10^3/uL MPV 11.4 (9.5-13.5) fL Neut % (Auto) 77.5 H (43.0-75.0) % Lymph % (Auto) 13.0 L (20.5-60.0) % [place] % (Auto) 8.0 (1.7-12.0) % Eos % (Auto) 0.9 (0.9-7.0) % Baso % (Auto) 0.2 (0.2-2.0) % Neut # (Auto) 9.1 H (1.4-6.5) 10^3/uL Lymph # (Auto) 1.5 (1.2-3.8) 10^3/uL [place] # (Auto) 0.9 H (0.3-0.8) 10^3/uL Eos # (Auto) 0.1 (0.0-0.7) 10^3/uL Baso # (Auto) 0.0 (0.0-0.1) 10^3/uL Abs Immat Gran (auto) 0.05 H (0.00-0.03) 10^3/uL Imm/Tot Granulo (auto) 0.4 (0.0-0.5) % Sodium 137 (136-145) mmol/L Potassium 3.7 (3.5-5.1) mmol/L Chloride 102 (98-107) mmol/L Carbon Dioxide 27.0 (21.0-32.0) mmol/L Anion Gap 11.7 BUN 19.0 H (7.0-18.0) mg/dL Creatinine 0.99 (0.70-1.30) mg/dL Est GFR ( Amer) >60 (>=60 mL/min/1.73m^2) Est GFR (Non-Af Amer) >60 (>=60 mL/min/1.73m^2) BUN/Creatinine Ratio 19.2 Glucose 119 H (74-106) mg/dL Lactate 0.9 (0.4-2.0) mmol/L Calcium 10.7 H (8.5-10.1) mg/dL Total Bilirubin 1.3 H (0.2-1.0) mg/dL AST 27 (15-37) U/L ALT 47 (16-63) U/L Alkaline Phosphatase 82 (46-116) U/L Total Protein 8.5 H (6.4-8.2) g/dL Albumin 3.8 (3.4-5.0) g/dL Globulin 4.7 g/dL Albumin/Globulin Ratio 0.8 Lipase 12.0 L (16.0-77.0) U/L Urine Color Yellow (YELLOW) Urine Clarity Clear (CLEAR) Urine pH 6.0 (5.0-9.0) Ur Specific [place] >=1.030 A (1.005-1.025) Urine Protein Trace (NEG/TRACE) mg/dL Urine Glucose (UA) Negative (NEGATIVE) mg/dL Urine Ketones Negative (NEGATIVE) mg/dL Urine Occult Blood Trace-i (NEGATIVE) Urine Nitrite Negative (NEGATIVE) Urine Bilirubin Negative (NEGATIVE) Urine Urobilinogen 0.2 (0.2-1.0) EU/dL Ur Leukocyte Esterase Negative (NEGATIVE) Urine RBC 0-2 (0-2) #/HPF Urine WBC 0-2 A (NONE SEEN) #/HPF Ur Squamous Epith Cells Rare (NONE/RARE) #/LPF Urine Crystals None seen (None Seen) #/HPF Urine Bacteria Trace A (NONE SEEN) #/HPF Urine Casts Seen A (NONE SEEN) #/LPF Hyaline Casts Few Fine Granular Casts Rare Urine Mucus Moderate A (NONE SEEN) Ur Culture Indicated? No Stool Occult Blood Positive A C. difficile Toxin PCR Negative Discharge Plan Discharge Stand Alone Forms: Work/School Release Chief Complaint: Nausea/Vomiting/Diarrhea Clinical Impression: Diarrhea, Abdominal pain Patient Disposition: Home, Self-Care Time of Disposition Decision: 11:44 Condition: Fair Mode of Transportation: Private Vehicle Prescriptions / Home Meds: New dicyclomine 20 mg tablet 20 mg PO TID PRN (Reason: abdominal pain) Qty: 7 0RF ondansetron 4 mg tablet,disintegrating 4 mg PO Q4H PRN (Reason: nausea and vomiting) 3 Days Qty: 6 0RF No Action losartan 50 mg tablet 50 mg PO DAILY Print Language: Tamazight Instructions: Acute Diarrhea (ED), Abdominal Pain (ED) Additional Instructions: Increase fluids at home, Gatorade, Powerade, water Use Bentyl if needed for abdominal cramping, use Zofran as needed. Stool cultures are pending. Do not take any Imodium unless your stool and diarrhea are going greater than 10 to 14 days. Follow-up with your PCP for additional testing as needed Referrals: Benita Salazar MD [Primary Care Provider, Family Practice] - 1 week Discharge Date/Time: 01/21/25 11:59
[2025-01-21] MEDS: 0.9 % SODIUM CHLORIDE 1,000 ML 999 ML IV (10:23)
[2025-01-21 10:25] LABS: Basophils Percent Auto 0.2 % (0.2-2.0); Eosinophils Absolute Auto 0.1 10^3/uL (0.0-0.7); Eosinophils Percent Auto 0.9 % (0.9-7.0); Hematocrit 45.6 % (42.0-54.0); Hemoglobin 15.7 g/dL (14.0-18.0); Immature Granulocytes Abs Auto 0.05 10^3/uL (0.00-0.03); Immature Granulocytes Pct Auto 0.4 % (0.0-0.5); Lymphocytes Absolute Auto 1.5 10^3/uL (1.2-3.8); Mean Corpuscular HGB Conc 34.4 g/dL (29.9-35.2); Mean Corpuscular Hemoglobin 29.7 pg (25.9-34.0); Mean Corpuscular Volume 86.2 fL (80.0-94.0); Mean Platelet Volume 11.4 fL (9.5-13.5); Monocytes Absolute Auto 0.9 10^3/uL (0.3-0.8); Neutrophils Absolute Auto 9.1 10^3/uL (1.4-6.5); Neutrophils Percent Auto 77.5 % (43.0-75.0); Platelet Count 142 10^3/uL (150-450); Red Blood Count 5.29 10^6/uL (4.70-6.10); Red Cell Distribution Width 13.1 % (11.0-15.0); White Blood Count 11.7 10^3/uL (4.0-11.0)
[2025-01-21 10:26] LABS: Bilirubin Urine NEGATIVE (NEGATIVE); Blood Urine TRACE-I (NEGATIVE); Clarity Urine CLEAR (CLEAR); Color Urine YELLOW (YELLOW); Glucose Urine UA NEGATIVE (NEGATIVE); Ketones Urine NEGATIVE (NEGATIVE); Leukocyte Esterase Urine NEGATIVE (NEGATIVE); Nitrite Urine NEGATIVE (NEGATIVE); Protein Urine TRACE mg/dL (NEG/TRACE); Specific Gravity Urine >=1.030 (1.005-1.025); Urobilinogen Urine 0.2 EU/dL (0.2-1.0)
[2025-01-21 10:36] LABS: Bacteria Urine TRACE #/HPF (NONE SEEN); Cast Seen? SEEN #/LPF (NONE SEEN); Crystals Seen? None Seen #/HPF (None Seen); Fine Granular Casts Urine RARE; Hyaline Casts Urine FEW; Mucus Urine MODERATE (NONE SEEN); RBC Urine 0-2 #/HPF (0-2); Squamous Epithelial Cell Urine RARE #/LPF (NONE/RARE); Urine Culture Indicated NO; WBC Urine 0-2 #/HPF (NONE SEEN)
[2025-01-21 10:45] LABS: Lactate/Lactic Acid 0.9 mmol/L (0.4-2.0)
[2025-01-21 10:51] LABS: Alanine Aminotransferase 47 U/L (16-63); Albumin Globulin Ratio 0.8; Albumin Level 3.8 g/dL (3.4-5.0); Alkaline Phosphatase 82 U/L (46-116); Anion Gap 11.7; Aspartate Amino Transferase 27 U/L (15-37); BUN Creatinine Ratio 19.2; Bilirubin Total 1.3 mg/dL (0.2-1.0); Calcium 10.7 mg/dL (8.5-10.1); Chloride 102 mmol/L (98-107); Estimated GFR (African America >60 (>=60 mL/min/1.73m^2); Estimated GFR (Non-African Ame >60 (>=60 mL/min/1.73m^2); Globulin 4.7 g/dL; Glucose 119 mg/dL (74-106); Potassium 3.7 mmol/L (3.5-5.1); Sodium 137 mmol/L (136-145); Total Protein 8.5 g/dL (6.4-8.2)
[2025-01-21 10:58] VITALS: BP 178/112; PULSE 92; O2SAT 96
[2025-01-21 11:12] LABS: Internal Control Within Normal Limits; Occult Blood Positive
[2025-01-21 12:11] LABS: C. Difficile PCR NEGATIVE
[2025-01-22 12:08] LABS: Giardia lamblia Ag, EIA Negative (Negative)
[2025-01-27 11:09] LABS: Lactoferrin, Fecal, Quant. 104.14 ug/mL(g) (0.00-7.24)
== END 2025-01-21 11:59 | disposition home or self-care (01) ==
PROVIDERS: Emergency Provider Emergency Medicine; PCP Family Medicine
DX: R19.7 Diarrhea, unspecified (principal); R10.9 Unspecified abdominal pain; I10 Essential (primary) hypertension; Z79.899 Other long term (current) drug therapy
CPT/HCPCS: 36415; 74019; 80053; 81001; 83605; 83631; 83690; 85025; 87045; 87046; 87177; 87209; 87329; 87427; 87493; 96360; 99285; G0328

== ENCOUNTER 2025-02-18 06:22 | Outpatient (OUT) | payer OTHER, SELFPAY ==
--- OUTSIDE RECORDS SUMMARY | 2025-02-18 06:24 | XMS_ITS | CCD ---
Author Organization [facility] Care Team Providers Care Hatchery Supervisor Name Role Phone BENITA COLE Consulting Unavailable BENITA COLE Attending Unavailable BENITA COLE Admitting Unavailable BENITA COLE Primary Care Unavailable MISC, DOCTOR Consulting Unavailable MISC, DOCTOR Attending Unavailable MISC, DOCTOR Admitting Unavailable PATY DEL REAL Consulting Unavailable JEWELL CABALLERO Consulting Unavailable [employer] Consulting Unavailable Benita Cole Unavailable BENITA COLE Primary Care Physician [phone] Leo FRAZIER Attending Unavailable BENITA COLE Referring Unavailable Leo FRAZIER Admitting Unavailable Leo FRAZIER Attending Unavailable Leo FRAZIER Attending Unavailable Nisa Santillan Unavailable Allergies Allergy Classification Reported Allergen(s) Allergy Type Date of Onset Reaction(s) Facility (1 source) No Known Medication Allergies; Translations: [No Known Medication Allergies] Propensity to adverse reactions (disorder) [facility] Repository (1 source) patient allergy list reviewed by nurse or physicia Propensity to adverse reactions Comment:Done [facility] Other (1 source) Allergies Reconciled Propensity to adverse reactions Unknown [facility] Other Medications Current Medications Medication Drug Class(es) Dates Sig (Normalized) Sig (Original) 24 hr alfuzosin hydrochloride 10 mg extended release oral tablet (1 source) alpha-Adrenergic Pawel Start: 05-26-2023 End: 05-20-2024 take 1 tablet by mouth once daily alfuzosin 10 mg ER Tab 10 mg = 1 tab(s), Oral, Daily, X 30 day(s), # 30 tab(s), Refills(s) 11, Pharmacy: [facility], 169, cm, 05/26/23 13:52:00 EDT, Height/Length [...] completed, # 2 tab(s), Refills(s) 0, Pharmacy: [facility], 169, cm, 05/26/23 13:52:00 EDT, Height/Length [...] Basophils (Bld) [#/Vol] Automated basophil count 0.0-0.1 [facility] Basophils/100 WBC Auto (Bld) on 08-30-2024 Basophils/100 WBC (Bld) Automated basophil % 0.2-2.0 [facility] Eosinophils/100 WBC Auto (Bl d)on 08-30-2024 Eosinophils/100 WBC (Bld) Automated eosinophil % 0.9-7.0 [facility] Erythrocyte distribution wid th Auto (RBC) [Ratio]on 08-30-2024 Erythrocyte distribution width (RBC) [Ratio] Erythrocyte distribution width [Ratio] by Automated count 11.0-15.0 [facility] Estimated glomerular filtrat ion rate (GFR) non- Americanon 08-30-2024 GFR/1.73 sq M.predicted among non-blacks MDRD (S/P/Bld) [Vol rate/Area] Estimated glomerular filtration rate (GFR) non- >=60 mL/min/1.73m 2 [facility] Globulin Calc (S) [Mass/Vol] on 08-30-2024 Globulin (S) [Mass/Vol] Serum globulin measurement by calculation (mass/volume) [facility] Hematocrit Auto (Bld) [Volum e fraction]on 08-30-2024 Hematocrit (Bld) [Volume fraction] Hematocrit [Volume Fraction] of Blood by Automated count 42.0-54.0 [facility] Hemoglobin [Mass/volume] in Bloodon 08-30-2024 Hemoglobin (Bld) [Mass/Vol] Hemoglobin [Mass/volume] in Blood 14.0-18.0 [facility] Laboratory - Chemistry and C hemistry - challengeon 08-30-2024 Albumin [Mass/Vol] 3.6 g/dL 3.4-5.0 [facility] ALP [Catalytic activity/Vol] 120 U/L High 46-116 [facility] ALT [Catalytic activity/Vol] 71 U/L High 16-63 [facility] AST [Catalytic activity/Vol] 34 U/L 15-37 [facility] Bilirubin [Mass/Vol] 0.5 mg/dL 0.2-1.0 [facility] Calcium [Mass/Vol] 8.5 mg/dL 8.5-10.1 [facility] Chloride [Moles/Vol] 104 mmol/L 98-107 [facility] CO2 [Moles/Vol] 25.6 mmol/L 21.0-32.0 [facility] Creatinine [Mass/Vol] 0.88 mg/dL 0.70-1.30 [facility] GFR/1.73 sq M.predicted MDRD (S/P/Bld) [Vol rate/Area] mL/min/{1.73_m2} >=60 mL/min/1.73m 2 [facility] Glucose [Mass/Vol] 141 mg/dL High 74-106 [facility] Potassium [Moles/Vol] 4.1 mmol/L 3.5-5.1 [facility] Protein [Mass/Vol] 8.2 g/dL 6.4-8.2 [facility] Sodium [Moles/Vol] 137 mmol/L 136-145 [facility] Urea nitrogen [Mass/Vol] 14.0 mg/dL 7.0-18.0 [facility] Urea nitrogen/Creatinine [Mass ratio] 15.9 mg/mg [facility] Laboratory - Hematology and Cell countson 08-30-2024 Immature granulocytes/100 WBC (Bld) 1.1 % High 0.0-0.5 [facility] Leukocytes [#/volume] correc esme for nucleated erythrocytes in Blood by Automated counon 08-30-2024 WBC corrected for nucl RBC Auto (Bld) [#/Vol] Leukocytes [#/volume] corrected for nucleated erythrocytes in Blood by Automated coun 4.0-11.0 [facility] Lymphocytes Auto (Bld) [#/Vo l]on 08-30-2024 Lymphocytes (Bld) [#/Vol] Lymphocytes [#/volume] in Blood by Automated count 1.2-3.8 [facility] Lymphocytes/100 WBC Auto (Bl d)on 08-30-2024 Lymphocytes/100 WBC (Bld) Lymphocytes/100 leukocytes in Blood by Automated count Low 20.5-60.0 [facility] MCH Auto (RBC) [Entitic mass ]on 08-30-2024 MCH (RBC) [Entitic mass] MCH [Entitic mass] by Automated count 25.9-34.0 [facility] MCHC Auto (RBC) [Mass/Vol]on 08-30-2024 MCHC (RBC) [Mass/Vol] MCHC [Mass/volume] by Automated count 29.9-35.2 [facility] MCV Auto (RBC) [Entitic vol] on 08-30-2024 MCV (RBC) [Entitic vol] MCV [Entitic volume] by Automated count 80.0-94.0 [facility] Monocytes Auto (Bld) [#/Vol] on 08-30-2024 Monocytes (Bld) [#/Vol] Automated blood monocyte count 0.3-0.8 [facility] Monocytes/100 WBC Auto (Bld) on 08-30-2024 Monocytes/100 WBC (Bld) Automated monocyte % 1.7-12.0 [facility] Neutrophils Auto (Bld) [#/Vo l]on 08-30-2024 Neutrophils (Bld) [#/Vol] Neutrophils [#/volume] in Blood by Automated count 1.4-6.5 [facility] Neutrophils/100 WBC Auto (Bl d)on 08-30-2024 Neutrophils/100 WBC (Bld) Automated neutrophil % 43.0-75.0 [facility] No Panel Informationon 08-30 Eosinophils # (Auto) 0.2 10 3/uL 0.0-0.7 [facility] Immature Granulocyte # (Auto) 0.09 10 3/uL High 0.00-0.03 [facility] Platelet mean volume Auto (B ld) [Entitic vol]on 08-30-2024 Platelet mean volume (Bld) [Entitic vol] Platelet mean volume [Entitic volume] in Blood by Automated count 9.5-13.5 [facility] Platelets Auto (Bld) [#/Vol] on 08-30-2024 Platelets (Bld) [#/Vol] Platelets [#/volume] in Blood by Automated count Low 150-450 [facility] RBC Auto (Bld) [#/Vol]on RBC (Bld) [#/Vol] Erythrocytes [#/volume] in Blood by Automated count 4.70-6.10 [facility] Serum or plasma albumin/glob ulin mass ratioon 08-30-2024 Albumin/Globulin [Mass ratio] Serum or plasma albumin/globulin mass ratio [facility] Serum or plasma anion gap de terminationon 08-30-2024 Anion gap [Moles/Vol] Serum or plasma anion gap determination [facility] Provider Letteron 07-16-2023 Provider Letter July 16, 2023 [address] [address] : 1975 Dear Keturah Atul, We have been trying to reach you with no success. It is important that you return our call regarding your CT and PSA results upon receiving this letter. Also, at the time of your call, please provide us with your current information. Please call our office at [phone] Thank you for your prompt attention to this matter. Sincerely, [facility] [address] [place] [address] [facility] Lab Reportson 07-14-2023 Lab Reports [id number] #1.00TIFF [facility] RAD - CT Reporton 06-27-[address] RAD - CT Report [id number] #1.00TIFF [facility] Operative Reporton Operative Report [id number] #1.00TIFF [facility] Pre-Certification Formon Pre-Certification Form [id number] #1.00TIFF [facility] Insurance Correspondenceon Insurance Correspondence [id number] 9#1.00TIFF [facility] Pre-Certification Formon Pre-Certification Form [id number] #1.00TIFF [facility] Urine Cytology ([facility])on Urine Cytology Diagnosis Info Invalid Interpretation Code [facility] Comment on above: Result Comment: A:Ur ine,Urine:Voided Interpretation - MicroScopic Description - Adequacy - Gross Description Site ID:A color Yellow fixative Alcohol Specimen designated Urine received in alcohol preservative and labeled with the patient?s name, consists of 80ml clear yellow fluid. Electronically signed by : on: 06/02/2023 14:58:41 Performed By: #### 1 [id number] ####[facility] [address] [place] [address] Consent for Procedure/Surger yon 05-27-2023 Consent for Procedure/Surgery [id number]#1.00CD:127 Normal [facility] Formson 05-27-2023 Forms [id number]# 1.00CD:127 Normal [facility] Physician Referralon 023 Physician Referral [id number]# 1.00CD:127 Normal [facility] Ambulatory Visit Summaryon 0 05-26-2023 Ambulatory Visit Summary AURELIANO ROMERO :1975 Visit Date:05/26/2023 Ambulatory Visit Instructions Your Diagnosis BPH with obstruction/lower urinary tract symptoms Urge incontinence Asymptomatic microscopic hematuria Screening PSA (prostate specific antigen) Tests Performed Urnls Dip Stick Auto w/o Microscopy POC 7[address]66 CT Urogram -- Results Pending -- Please [...] [facility] [address] , [place] [phone] Medications What How Much When Instructions New alfuzosin (alfuzosin 10 mg ER Tab) 1 Tablets By Mouth Every day Duration: 30 Days Refills: 11 Pickup at [facility] New ciprofloxacin (Cipro 500 mg Tab) 1 Tablets By Mouth As Directed Patient to take 1 tab the day before procedure and the 2nd tab the day of procedure once completed Pickup at [facility] Unchanged metformin (metformin 1000 mg Tab) Contact prescribing physician if questions or concerns Unchanged naproxen By Mouth Contact prescribing physician if questions or concerns Pharmacy Information [facility]: [address] [place] [id number] [phone] Test Results Urnls Dip Stick Auto w/o Microscopy POC 35524 (05/26/2023) Bilirubin Urine Dipstick - Negative Blood Urine Dipstick - 1+ Small Glucose Urine Dipstick - Negative Ketones Urine Dipstick - Negative Leukocytes Urine Dipstick - Negative Nitrite Urine Dipstick - Negative Protein Urine Dipstick - 1+ (30 mg/dl) Specific [place] Urine Dipstick - 1.025 Urine Appearance Urine [...] including vitamins, herbs, eye drops, creams, and xqij-lfw-gvocwvo medicines. ? Any problems you or family [...] care provi (more content not included)... Normal [facility] Urine Cytology ([facility])on 0 05-26-2023 Method of Extraction Voided Normal [facility] Comment on above: Performed By: #### 1 [id number] ####[facility] [address] [place] [address] Number of Jars 1 Invalid Interpretation Code [facility] Comment on above: Performed By: #### 1 [id number] ####[facility] [address] [place] [address] Specimen Urine Normal [facility] Comment on above: Performed By: #### 1 [id number] ####[facility] [address] [place] [address] Type of Service Technical Only Normal [facility] Comment on above: Performed By: #### 1 [id number] ####[facility] [address] [place] [address] Urology Office/Clinic Noteon 05-26-2023 Urology Office/Clinic Note [...] Kelly, URL [facility] [address] [place] [phone] Additional Instructions: schedule cysto, CTU Patient Education Cystoscopy I, Paris Leroy, personally scribed for Dr. Frazier on 05/26/2023 14:59:43. . Documentation recorded by the scribe, Paris Leroy, accurately reflects the services( (more content not included)... Normal [facility] Comment on above: Result Comment: Elec tronically Signed By: Leo FRAZIER MD R\.br\Date and Time Signed: 05/26/23 15:01 EDT\.br\Electronically Co-Signed By: Paris Leroy\.br\Date and Time Co-Signed: 05/26/23 15:00 EDT LIPID PROFILEon 07-07-2020 CHOL-HDL RATIO NORM SEE BELOW Normal [facility] Comment on above: Result Comment: 3.3 - 4.4 LOW RISK 4.4 - 7.1 AVERAGE RISK 7.1 - 11.0 MODERATE RISK >11.0 HIGH RISK Performed By: #### C MP, LIPID #### [facility] [address] [address] Parth Lisette Cholesterol [Mass/Vol] 144 mg/dL Normal <=200 [facility] Comment on above: Performed By: #### C MP, LIPID #### [facility] [address] [place] [address] Parth Lisette Cholesterol in HDL [Mass/Vol] 43 mg/dL Normal [facility] Comment on above: Performed By: #### C MP, LIPID #### [facility] [address] [id number] Parth Lisette Cholesterol in HDL [Mass/Vol] > or = 60 mg/dl - LOW CARDIOVASCULAR RISK <40 mg/dl - HIGH CARDIOVASCULAR RISK Normal [facility] Comment on above: Performed By: #### C MP, LIPID #### [facility] [address] [id number] Parth Lisette Cholesterol in LDL [Mass/Vol] 90.8 mg/dL Normal [facility] Comment on above: Performed By: #### C MP, LIPID #### [facility] [address] [place] [address] Parth Lisette Cholesterol in LDL [Mass/Vol] SEE BELOW Normal [facility] Comment on above: Result Comment: <100 mg/dl OPTIMAL 100 - 129 mg/dl NEAR OR ABOVE OPTIMAL 130 - 159 mg/dl BORDERLINE HIGH 160 - 189 mg/dl HIGH >190 mg/dl VERY HIGH Performed By: #### C MP, LIPID #### [facility] [address] [place], [place] [address] Parth Lisette Cholesterol.total/Cho lesterol in HDL [Mass ratio] 3.3 {ratio} Normal [facility] Comment on above: Performed By: #### C MP, LIPID #### [facility] [address] [place], [place] [address] Parth Lisette Triglyceride [Mass/Vol] 51 mg/dL Normal <=150 [facility] Comment on above: Performed By: #### C MP, LIPID #### [facility] [address] [place], [place] [address] Parth Lisette VLDL CALC 10.2 mg/dL Normal [facility] Comment on above: Performed By: #### C MP, LIPID #### [facility] [address] [place], [place] [address] Parththomas Arceen PROF 14(COMP METB)on 020 Albumin [Mass/Vol] 4.0 g/dL Normal 3.5-5.0 [facility] Comment on above: Performed By: #### C MP, LIPID #### [facility] [address] [place], [place] [address] Parth Lisette Albumin/Globulin [Mass ratio] 1.0 {ratio} Normal [facility] Comment on above: Performed By: #### C MP, LIPID #### [facility] [address] [place], [place] [address] Parth Lisette ALP [Catalytic activity/Vol] 81 U/L Normal 38-126 [facility] Comment on above: Performed By: #### C MP, LIPID #### [facility] [address] [place], [place] [address] Parth Lisette ALT [Catalytic activity/Vol] 40 U/L Normal 21-72 [facility] Comment on above: Performed By: #### C MP, LIPID #### [facility] [address] [id number] Parth Lisette Anion gap [Moles/Vol] 11.3 mmol/L Normal [facility] Comment on above: Performed By: #### C MP, LIPID #### [facility] [address] [id number] Parth Lisette AST [Catalytic activity/Vol] 18 U/L Normal 17-59 [facility] Comment on above: Performed By: #### C MP, LIPID #### [facility] [address] [id number] Parth Lisette Bilirubin Ql (U) 0.7 mg/dL Normal 0.2-1.3 [facility] Comment on above: Performed By: #### C MP, LIPID #### [facility] [address] [place] [address] Parth Lisette Calcium [Mass/Vol] 9.0 mg/dL Normal 8.4-10.2 [facility] Comment on above: Performed By: #### C MP, LIPID #### [facility] [address] [place] [address] Parth Lisette Chloride [Moles/Vol] 102 mmol/L Normal 98-107 [facility] Comment on above: Performed By: #### C MP, LIPID #### [facility] [address] [id number] Parth Lisette CO2 [Moles/Vol] 27.7 mmol/L Normal 22.0-30.0 [facility] Comment on above: Performed By: #### C MP, LIPID #### [facility] [address] [id number] Parth Lisette Creatinine [Mass/Vol] 0.83 mg/dL Normal 0.66-1.25 [facility] Comment on above: Performed By: #### C MP, LIPID #### [facility] [address] [id number] Parth Lisette EGFR-AF LEBANESE >60 Normal >=60 [facility] Comment on above: Performed By: #### C MP, LIPID #### [facility] [address] [place], [place] [address] Parth Lisette EGFR-NON AF LEBANESE >60 Normal >=60 [facility] Comment on above: Performed By: #### C MP, LIPID #### [facility] [address] [place], [place] [address] Parth Lisette Globulin (S) [Mass/Vol] 4.2 g/dL Normal [facility] Comment on above: Performed By: #### C MP, LIPID #### [facility] [address] [id number] Parth Lisette Glucose [Mass/Vol] 105 mg/dL Normal 74-106 [facility] Comment on above: Performed By: #### C MP, LIPID #### [facility] [address] [place] [address] Parth Lisette Potassium [Moles/Vol] 4.0 mmol/L Normal 3.4-5.0 [facility] Comment on above: Performed By: #### C MP, LIPID #### [facility] [address] [place], [place] [address] Parth Lisette Protein [Mass/Vol] 8.2 g/dL Normal 6.1-8.2 [facility] Comment on above: Performed By: #### C MP, LIPID #### [facility] [address] [place], [place] [address] Parth Lisette Sodium [Moles/Vol] 137 mmol/L Normal 137-145 [facility] Comment on above: Performed By: #### C MP, LIPID #### [facility] [address] [id number] Parth Lisette Urea nitrogen [Mass/Vol] 18.0 mg/dL Normal 9.0-20.0 [facility] Comment on above: Performed By: #### C MP, LIPID #### [facility] [address] [id number] Parth Lisette Urea nitrogen/Creatinine [Mass ratio] 21.7 mg/mg Normal [facility] Comment on above: Performed By: #### C MP, LIPID #### [facility] [address] [address] Parth Knox XR HUMERUS LT MIN 2Von [...] THOMAS STUART Date: 2020-06-21 23:25 Normal [facility] US VENOUS DOPPLER L Gonzalo US VENOUS [...] JEWELL CABALLERO Date: 2020-06-21 17:30 Normal [facility] XR WRIST LT 2Von 06-21-2020 XR WRIST [...] PATY DEL REAL Date: 2020-06-21 18:46 Normal [facility] Vital Signs Date Time Vital Sign Value Performing Clinician Facility 10-05-2024 14:38-0500 Body height 172.72 cm [facility] 10-05-2024 14:38-0500 Body mass index (BMI) [Ratio] 41.6 kg/m2 [facility] 10-05-2024 14:38-0500 Body weight 124.28 kg [facility] 10-05-2024 14:38-0500 Diastolic blood pressure 92 mm[Hg] [facility] 10-05-2024 14:38-0500 Heart rate 87 /min [facility] 10-05-2024 14:38-0500 Systolic blood pressure 160 mm[Hg] [facility] 08-23-2024 09:42-0500 Body height 172.72 cm [facility] 08-23-2024 09:42-0500 Body mass index (BMI) [Ratio] 42.3 kg/m2 [facility] 08-23-2024 09:42-0500 Body weight 126.09 kg [facility] 08-23-2024 09:42-0500 Diastolic blood pressure 99 mm[Hg] [facility] 08-23-2024 09:42-0500 Heart rate 85 /min [facility] 08-23-2024 09:42-0500 Systolic blood pressure 167 mm[Hg] [facility] 06-17-2024 15:09-0400 Body height 172.72 cm [facility] 06-17-2024 15:09-0400 Body mass index (BMI) [Ratio] 43 kg/m2 [facility] 06-17-2024 15:09-0400 Body weight 128.36 kg [facility] 06-17-2024 15:09-0400 Diastolic blood pressure 95 mm[Hg] [facility] 06-17-2024 15:09-0400 Heart rate 80 /min [facility] 06-17-2024 15:09-0400 Systolic blood pressure 172 mm[Hg] [facility] 09-20-2023 13:20-0500 Body height 172.72 cm Nisa Tanmond Other [facility] [employer] [employer] Other 09-20-2023 13:20-0500 Body mass index (BMI) [Ratio] 42.57 kg/m2 Nisa Jacque Other [facility] Other 09-20-2023 13:20-0500 Body temperature 99 [degF] Nisa Jacque Other [facility] Other 09-20-2023 13:20-0500 Body weight 127.01 kg Nisa Jacque Other [facility] Other 09-20-2023 13:20-0500 Diastolic blood pressure 100 mm[Hg] Nisa Jacque Other [facility] Other 09-20-2023 13:20-0500 SaO2% (BldA) [Mass fraction] 95 % Nisa Jacque Other [facility] Other 09-20-2023 13:20-0500 Systolic blood pressure 160 mm[Hg] Nisa Jacque Other [facility] Other 2023 11:30-0400 Body height 172.72 cm Benita Cole Other [facility] Other 2023 11:30-0400 Body mass index (BMI) [Ratio] 45.61 kg/m2 Benita Cole Other [facility] Other 2023 11:30-0400 Body weight 136.08 kg Benita Cole Other [facility] Other 2023 11:30-0400 Diastolic blood pressure 90 mm[Hg] Benita Cole Other [facility] Other 2023 11:30-0400 SaO2% (BldA) [Mass fraction] 97 % Benita Cole Other [facility] Other 2023 11:30-0400 Systolic blood pressure 148 mm[Hg] Benita Cole Other [facility] Other Encounters Encounter Date Encounter Type Care Provider Facility Start: 10-05-2024 End: 10-05-2024 [facility] Work Phone: Start: 10-05-2024 End: 10-05-2024 [facility] encounter [facility] Work Phone: Start: 08-30-2024 Non-patient / Non-visit [facility] [employer] Work Phone: Start: 08-23-2024 End: 08-23-2024 Patient encounter procedure [facility] [employer] [facility] Work Phone: Start: 06-17-2024 End: 06-17-2024 ambulatory [facility] Work Phone: Start: 06-17-2024 End: 06-17-2024 Patient encounter procedure [facility] Work Phone: Start: 09-20-2023 End: 09-20-2023 ambulatory Nisa Santillan Other [facility] Other Start: 09-20-2023 Office outpatient vi sit 15 minutes Nisa Jacque [facility] [place] Start: 06-24-2023 End: 06-25-2023 ambulatory Leonickolas FRAZIER Facility:[id number] Start: 05-26-2023 End: 05-26-2023 Lab Drop off Leo FRAZIER [facility] Start: 05-26-2023 End: 05-27-2023 ambulatory Leonickolas FRAZIER Facility:[facility] [place] Start: 03-06-2023 ambulatory Leo FRAZIER Facility :[facility] Start: 02-28-2023 End: 02-28-2023 ambulatory Benita Cole Other [facility] Other Start: 02-28-2023 Telephone encounter Benita Cole [facility] Start: 2023 End: 2023 ambulatory Benita Cole Other [facility] Other Start: 2023 Encounter for genera l adult medical examination without abnormal findings Benita Cole [facility] Start: 2023 Periodic preventive med est patient 40-64yrs Benita Cole [facility] Start: 07-11-2020 Encounter for genera l adult medical examination without abnormal findings BENITA COLE [facility] Start: 07-07-2020 Adult health examination Nisa Tanmond Other [facility] Other Start: 07-07-2020 End: 07-08-2020 Patient encounter procedure BENITA COLE Facility:[facility] Start: 06-21-2020 End: 06-22-2020 Patient encounter procedure BENITA COLE Facility:[facility] Encounter for genera l adult medical examination without abnormal findings BENITA COLE [facility] Procedures Date Procedure Procedure Detail Performing Clinician History of operative procedure on knee Leo FRAZIER Plan of Treatment Date Care Activity Detail Author Patient Education Rotator Cuff T endinitis Stretching Exercises [facility] Work Phone: XR Shoulder - right Views [facility] Payers Date Payer Category Payer Unknown [id number] 1975 Unknown [id number] 2.16.84 [id number] 1975 Unknown [id number] 2.16.84 [id number] 1975 Unknown [id number] 2.16.8 [id number] 1975 Unknown [id number] 2.16.8 [id number] 1975 Unknown [id number] 2.16.8 [id number] 1975 Unknown [id number] 2.16.8 [id number] 1959 Unknown [id number] Unknown [id number] 2.16.8 [id number] Social History Date Type Detail Facility Sex Assigned At [facility] Start: 05-26-2023 End: 06-16-2024 Tobacco smoking status Never smoked tobacco (finding) [facility] Start: 1975 Sex Assigned At Male F [facility] Start: 10-05-2024 Sex Male (finding) [facility] Clinical Notes 2023 to 08-23-2024 Note Date & Type Note Facility 08-23-2024 Evaluation note Diagnosis Onset Date Resolution Diarrhea acute August 23, 2024 9:37am Right shoulder pain acute Febru glen 2024 2:35pm [facility] Work Phone: [phone] 245-861501-20-2024 Evaluation note* Encounter Date Diagnosis Assessment Notes [...] no improvement in 2 to 3 days. [facility] Other 09-25-2023 NoteUrology Cystoscopy Cystoscopy is a [...] including vitamins, herbs, eye drops, creams, and ysfk-rqa-qatwrec medicines. ? Any problems you or family [...] tells you to take them. ? Taking wyqy-qjo-igprvvx medicines, vitamins, herbs, and supplements. Tests You [...] these instructions at home: Medicines ? Take chqh-ydw-dvlpgdb and prescription medicines only as told by [...] or the department th (more content not included)...[facility] 05-26-2023 Evaluation + Plan note Diagnostic Tests Pending * Urine Cytology ([facility]) 05/26/23 [facility]06-30-2023 Evaluation note* Encounter Date Diagnosis Assessment Notes Treatment Notes Treatment Clinical Notes Jan, Urinary frequency (ICD-10 - R35.0) Jan, Controlled type 2 diabetes mellitus with hyperglycemia, without long-term current use of insulin (ICD-10 - E11.65) [facility] Other 06-20-2023 Evaluation note* Encounter Date Diagnosis [...] N52.9) Consider urology referral. Check labs first. [facility] Other Evaluation noteNo assessment information available [facility] Work Phone: History general Narrative - Reported* Type Description Date Surgical History knee surgery left [facility] Other Hospital course Narrative No data available for this section [facility] No data available for this section [facility] No data available for this section [facility] Summary Purpose Family History Relationship Condition Age [...] frequency (R 35.0) Referral Organization [facility] Referring Provider First Name Benita Referring Provider Last Name Marie Referring Provider Specialty Family [facility] Referred Organization [facility] Referred Provider Junior Hough Referred Address [address],[place], [place],[address] Referred Provider Specialty Urology Referral Priority Routine [...] DATE CREATED AUTHOR AUTHOR'S ORGANIZ ATION 07/18/2023 [facility] REASON FOR VISIT (unrecogniz ed section [...] BE BASED ON THE PRIMARY CLINICAL RECORDS. [employer] provides no warranty or guarantee of the accuracy or completeness of information in this document.
[2025-02-18 06:36] LABS: Estimated GFR (African America >60 (>=60 mL/min/1.73m^2); Estimated GFR (Non-African Ame >60 (>=60 mL/min/1.73m^2)
--- NOTE | 2025-02-18 06:56 | CT_ITS ---
The [address] [address] Patient Name: PEDRO ROMERO MRN: [id number] date: 1975 Sex: M Assigned Patient Location: LAB Current Patient Location: LAB Accession/Order Number: [id number] Exam Date: 02/18/2025 08:35 Report Date: 02/18/2025 08:43 At the request of: MARINA COLE MD Procedure: CT abdomen pelvis w con CT ABDOMEN AND PELVIS WITH CONTRAST COMPARISON: 06/21/2023 CLINICAL DATA: Diarrhea for the past week Spiral images were obtained through the abdomen and pelvis following oral and [address] exam was performed using one or more following dose reduction techniques: Automated exposure control, adjustment of the mA and/or kV according to patient size, or use of iterative reconstruction technique. Limited cuts through the lung bases show no contributory findings. No obvious calcified gallstones are visualized. No intrahepatic masses are seen. The spleen, pancreas and adrenal glands show no acute findings. There are symmetric renal nephrograms, without hydronephrosis. The abdominal aorta is normal caliber. Similar abdominal lymph nodes are present. No ascites is seen. There are normal caliber small bowel loops. Air and mild stool are visualized along the colon. There are some left-sided colonic diverticula. Slight levoscoliotic curvature is present. There are also mild degenerative changes at the spine. Images through the pelvis again show an umbilical hernia containing fat. There are normal caliber small bowel loops. No appendiceal inflammation is seen. There is mild air and stool at the distal colon. Additional colonic diverticula are seen, without associated active inflammation. The prostate is normal size. The urinary bladder shows no abnormalities for the degree of distention. No ascites is seen. CT/CT abdomen pelvis w con IMPRESSION: NO BOWEL OR URINARY TRACT OBSTRUCTION. DIVERTICULOSIS. UMBILICAL HERNIA CONTAINS FAT. NO ACUTE FINDINGS. Impression dictated by: Lisette Wade M.D. 02/18/2025 8:43 AM Dictation Location: [place] [address] Electronically authenticated by: [id number] Y Date: 02/18/2025 08:43
== END 2025-02-18 06:23 | disposition home or self-care (01) ==
LOC: LAB 06:22
PROVIDERS: PCP Family Medicine; Visit Provider Family Medicine
DX: R19.7 Diarrhea, unspecified (principal); R10.9 Unspecified abdominal pain; K57.90 Diverticulosis of intestine, part unspecified, without perforation or abscess without bleeding; K42.9 Umbilical hernia without obstruction or gangrene
CPT/HCPCS: 36415; 74177; 82565; Q9967